=== PATIENT | male | born 1950 | race Caucasian/White ===

== ENCOUNTER 2017-08-06 02:18 | Inpatient (IN) | payer MEDICARE, OTHER ==
[2017-08-06] VITALS (14 sets, daily range): BP systolic 105–144; BP diastolic 65–95; PULSE 68–79; RESP 14–17; TEMP 97.3–97.6; O2SAT 92–97
[~2017-08-06] VITALS: Ht 182.9 cm; Wt 93.9 kg
[~2017-08-06 02:18] MED LIST: ACET325T11; ALLO100T PO; CIAL20TA PO; DOXY100T PO; EXCEDRIN PO; IRBE150T49 PO; MULTCAP13 PO; PRIL10CA PO; PROP60 PO; PSEU30LI PO; VALT1TAB26 PO; XANA0.5T; ZALE10
[2017-08-06] MEDS ORDERED: ZALE10CA PO (02:33)
[2017-08-06] MEDS ORDERED: XANA1TAB2 PO (02:33)
[2017-08-06] MEDS ORDERED: SODIUM CHLOR 0.9% 1000 ML INJ 1,000 ML IV ONE (02:34)
[2017-08-06] MEDS ORDERED: SODIUM CHLORIDE 0.9% FLUSH 10 ML FLUSH IVF PRN (02:45)
[2017-08-06 02:49] LABS: AUTOMATED NEUTROPHIL # 2.3 TH/MM3 (1.8-7.7); BASOPHIL % 0.7 % (0.0-2.0); EOSINOPHIL # 0.2 TH/MM3 (0-0.4); EOSINOPHIL % 3.6 % (0.0-4.0); HEMATOCRIT 45.1 % (39.0-51.0); LYMPHOCYTE # 1.5 TH/MM3 (1.0-4.8); MEAN CELL VOLUME 102.3 FL (80.0-100.0); NEUT % 51.7 % (16.0-70.0); PLATELET COUNT 79 TH/MM3 (150-450); RED BLOOD COUNT 4.41 MIL/MM3 (4.50-5.90); RED CELL DISTRIBUTION WIDTH 13.1 % (11.6-17.2); WHITE BLOOD COUNT 4.5 TH/MM3 (4.0-11.0)
[2017-08-06 02:59] LABS: PROTHROMBIN TIME - PATIENT 10.6 SEC (9.8-11.6)
[2017-08-06 03:04] LABS: ACETAMINOPHEN 2.5 MCG/ML (10.0-30.0); ALKALINE PHOSPHATASE 135 U/L (45-117); ALT (GPT) 37 U/L (12-78); TOTAL BILIRUBIN ADULT 0.4 MG/DL (0.2-1.0)
[2017-08-06 03:05] LABS: HEMO FLAGS AUTO DIFF; MEAN CORPUSCULAR HGB CONC 36.2 % (32.0-36.0)
[2017-08-06 03:13] LABS: ANION GAP 5 MEQ/L (5-15); AST (GOT) 55 U/L (15-37); BICARBONATE 30.8 MEQ/L (21.0-32.0); BLOOD UREA NITROGEN 13 MG/DL (7-18); CHLORIDE 104 MEQ/L (98-107); GLOMERULAR FILTRATION RATE 107 ML/MIN (>89); POTASSIUM 3.9 MEQ/L (3.5-5.1); SODIUM (NA) 140 MEQ/L (136-145)
[2017-08-06 03:14] LABS: ALCOHOL 80 MG/DL (0-5)
--- NOTE | 2017-08-06 03:35 | PD ---
HPI Chief Complaint: OD/ Ingestion Time Seen by Provider: 02:25 Travel History International Travel<30 days: No Contact w/Intl Traveler<30days: No Traveled to known affect area: No History of Present Illness HPI 66 y/o male presents with ingesting approximately 20 Xanax and 20 Ambien trying to kill himself. He is under العر[place] act. This occurred about an hour and a half prior to arrival. He states he's saddened drowsy but denies any other concurrent complaints. He presented by ambulance. He states that he's had thoughts of wanting to hurt himself but has not had any prior attempt. PFSH Past Medical History Cancer: No Cardiovascular Problems: No Diabetes: No Diminished Hearing: No Gout: Yes Hepatitis: No Hiatal Hernia: No Hypertension: Yes Medical other: Yes (GOUT) Respiratory: No Thyroid Disease: No Tetanus Vaccination: < 5 Years Past Surgical History Abdominal Surgery: Yes (GALLBLADDER) Cardiac Surgery: No Ear Surgery: No Endocrine Surgery: No Eye Surgery: No Genitourinary Surgery: No Gynecologic Surgery: No Neurologic Surgery: No Oral Surgery: No Thoracic Surgery: No Other Surgery: Yes Social History Alcohol Use: Yes Tobacco Use: No Substance Use: No Allergies-Medications (Allergen,Severity, Reaction): Coded Allergies: ampicillin (Unverified Allergy, Severe, 04/19/17) Reported Meds & Prescriptions Reported Meds & Active Scripts Active Reported Xanax (Alprazolam) 1 Mg Tab 1 Mg PO TID PRN Zaleplon 10 Mg Cap 10 Mg PO HS PRN Review of Systems Except as stated in HPI: all other systems reviewed are Neg Physical Exam Narrative GENERAL: Well-nourished, well-developed patient. SKIN: Warm and dry. HEAD: Normocephalic and atraumatic. EYES: No injection or drainage. ENT: No nasal drainage noted. NECK: Supple, trachea midline. CARDIOVASCULAR: Regular rate and rhythm RESPIRATORY: No increased effort. No accessory muscle use. GASTROINTESTINAL: Abdomen soft, non-tender, nondistended. EXTREMITIES: No edema. NEUROLOGICAL: Awake and alert. Motor and sensory grossly within normal limits. Normal speech. Data Data Last Documented VS Vital Signs Date Time Temp Pulse Resp B/P (MAP) Pulse Ox O2 Delivery O2 Flow Rate FiO2 08/06/17 05:02 68 16 107/69 (82) 94 Room Air 08/06/17 04:02 2.00 08/06/17 02:36 97.6 Orders Orders Electrocardiogram (08/06/17 ) Electrocardiogram (08/06/17 02:34) Complete Blood Count With Diff (08/06/17 02:34) Comprehensive Metabolic Panel (08/06/17 02:34) Prothrombin Time / Inr (Pt) (08/06/17 02:34) Act Partial Throm Time (Ptt) (08/06/17 02:34) Iv Access Insert/Monitor (08/06/17 02:34) Ecg Monitoring (08/06/17 02:34) Oximetry (08/06/17 02:34) Sodium Chloride 0.9% Flush (Ns Flush) (08/06/17 02:45) Sodium Chlor 0.9% 1000 Ml Inj (Ns 1000 M (08/06/17 02:34) Call Poison Control (08/06/17 02:34) Drug Screen, Random Urine (08/06/17 02:34) Alcohol (Ethanol) (08/06/17 02:34) Salicylates (Aspirin) (08/06/17 02:34) Tylenol (Acetaminophen) (08/06/17 02:34) Psych Screen (08/06/17 05:22) Labs Laboratory Tests Test 08/06/17 02:25 08/06/17 03:10 White Blood Count 4.5 TH/MM3 Red Blood Count 4.41 MIL/MM3 Hemoglobin 16.3 GM/DL Hematocrit 45.1 % Mean Corpuscular Volume 102.3 FL Mean Corpuscular Hemoglobin 37.0 PG Mean Corpuscular Hemoglobin Concent 36.2 % Red Cell Distribution Width 13.1 % Platelet Count 79 TH/MM3 Mean Platelet Volume 9.0 FL Neutrophils (%) (Auto) 51.7 % Lymphocytes (%) (Auto) 33.0 % Monocytes (%) (Auto) 11.0 % Eosinophils (%) (Auto) 3.6 % Basophils (%) (Auto) 0.7 % Neutrophils # (Auto) 2.3 TH/MM3 Lymphocytes # (Auto) 1.5 TH/MM3 Monocytes # (Auto) 0.5 TH/MM3 Eosinophils # (Auto) 0.2 TH/MM3 Basophils # (Auto) 0.0 TH/MM3 CBC Comment AUTO DIFF Differential Comment AUTO DIFF CONFIRMED Prothrombin Time 10.6 SEC Prothromb Time International Ratio 1.0 RATIO Activated Partial Thromboplast Time 25.0 SEC Blood Urea Nitrogen 13 MG/DL Creatinine 0.73 MG/DL Random Glucose 94 MG/DL Total Protein 6.2 GM/DL Albumin 3.3 GM/DL Calcium Level 8.3 MG/DL Alkaline Phosphatase 135 U/L Aspartate Amino Transf (AST/SGOT) 55 U/L Alanine Aminotransferase (ALT/SGPT) 37 U/L Total Bilirubin 0.4 MG/DL Sodium Level 140 MEQ/L Potassium Level 3.9 MEQ/L Chloride Level 104 MEQ/L Carbon Dioxide Level 30.8 MEQ/L Anion Gap 5 MEQ/L Estimat Glomerular Filtration Rate 107 ML/MIN Salicylates Level LESS THAN 1.7 MG/DL Acetaminophen Level 2.5 MCG/ML Ethyl Alcohol Level 80 MG/DL Urine Opiates Screen NEG Urine Barbiturates Screen NEG Urine Amphetamines Screen NEG Urine Benzodiazepines Screen POS Urine Cocaine Screen NEG Urine Cannabinoids Screen NEG MDM Medical Decision Making Medical Screen Exam Complete: Yes Emergency Medical Condition: Yes Medical Record Reviewed: Yes (past history confirmed) Interpretation(s) EKG shows NSR, no ST elevation or depression, and no arrhythmias. No significant T-wave inversions. CBC & BMP Diagram 08/06/17 02:25 Total Protein 6.2 L, Albumin 3.3 L, Calcium Level 8.3 L, Alkaline Phosphatase 135 H, Aspartate Amino Transf (AST/SGOT) 55 H, Alanine Aminotransferase (ALT/ SGPT) 37, Total Bilirubin 0.4 Differential Diagnosis Overdose, coingestion, depression, alcohol use Narrative Course Will check blood work and have staff discuss with poison control center and monitor labs with mild elevation in alcohol level, observed 3.5 hours here and total of 5 hours post ingestion and patient asymptomatic, patient medically cleared at 548 Diagnosis Primary Impression: Overdose Qualified Codes: T50.902A - Poisoning by unspecified drugs, medicaments and biological substances, intentional self-harm, initial encounter Syeda Bobby MD Aug 06, 2017 03:35
[2017-08-06 04:47] LABS: SCAN/DIFF AUTO DIFF CONFIRMED
[2017-08-06] MEDS ORDERED: IRBE300T11 PO (09:48)
[2017-08-06] MEDS ORDERED: OMEP20TA93 PO (09:48)
[2017-08-06] MEDS ORDERED: ALLO100T PO (09:48)
[2017-08-06] MEDS ORDERED: VALT1TAB PO (09:48)
[2017-08-06] MEDS ORDERED: CIAL2.5T PO (09:48)
[2017-08-06] MEDS ORDERED: LORazepam 2 MG TAB PO PRN (15:00)
[2017-08-06] MEDS ORDERED: ALUMINUM/MAGNESIUM/SIMETH 30 ML CUP PO PRN (15:00)
[2017-08-06] MEDS ORDERED: LORazepam 2 MG/ML VIAL IV PUSH PRN ×4 (15:00)
[2017-08-06] MEDS ORDERED: FLUMAZENIL 0.5 MG/5 ML VIAL IV PUSH PRN (15:00)
[2017-08-06] MEDS ORDERED: MAGNESIUM HYDROXIDE SUSP 30 ML CUP PO PRN (15:00)
--- NOTE | 2017-08-06 15:10 | HHI.HP ---
Provisional Diagnosis Admission Date [place] I. Major depression Certification of Person's Competence To Provide Express and Informed Consent I have personally examined Betina Alvarado , a person being served at [facility] on, Aug 06, 2017 14:59. Express and informed consent means consent voluntarily given in writing, by a competent person, after sufficient explanation and disclosure of the subject matter involved to enable the person to make a knowing and willful decision without any element of force, fraud, deceit, duress, or other form of constraint or coercion. This person is 18 years of age or older, is not now known to be incompetent to consent to treatment with a guardian advocate, and does not have a health care surrogate or proxy currently making medical treatment decisions. I have found this person to be one of the following: [x] Competent to provide express and informed consent, as defined above, for voluntary admission to this facility and is competent to provide express and informed consent for treatment. He/she has the consistent capacity to make well reasoned, willful, and knowing decisions concerning his or her medical or mental health treatment. The person fully and consistently understands the purpose of the admission for examination/placement and is fully capable of personally exercising all rights [place] Incompetent to provide express and informed consent to voluntary admission, and this is incompetent to provide express and informed consent to treatment. The person must be transferred to involuntary status and a petition for a guardian advocate filed with the Circuit Court. [] Refusing to provide express and informed consent to voluntary admission but is competent to provide express and informed consent for treatment. The person must be discharged or transferred to involuntary status. Form shall be completed within 24 hours of a person's arrival at the receiving facility and filed in the clinical record of each person: 1. Admitted on a voluntary basis 2. Permitted to provide express and informed consent to his/her own treatment 3. Allowed to transfer from involuntary to voluntary status 4. Prior to permitting a person to consent to his or her own treatment after having been previously found incompetent to consent to treatment. 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 Patient reportedly overdosed on approximately 20 Xanax and approximately 20 Ambien in a self-admitted suicide attempt. 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 He is also a recovering alcoholic and this physician is uncertain as to whether the patient has been drinking alcohol. Nurse Quin reports the patient has consumed approximately 1 pint of tequila every 2-3 days. Patient is and having marital issues as well. This physician spoke with Dr. Jessica Nelson , local OB/ [employer] doctor, who knows of the physician and is concerned the patient may be dealing with the negative criticism from others who are pro life. The patient describes multiple symptoms of major depression, including depressed mood, anhedonia, feelings of hopelessness and helplessness, suicidal ideation, anxiety, sleep and appetite disturbance, decreased energy, etc. The patient is unable to contract for safety at this time. Review of Systems Psychiatric: COMPLAINS OF: Anxiety, Mood changes, Suicidal Ideation Except as stated in HPI: all other systems reviewed are Neg Past Psych History Psychological trauma history Unknown Violence risk - others (6 mos) Minimal Violence risk - self (6 mos) High Substance Abuse History Drugs/Alcohol past 12 months Reported history of alcohol abuse recently. Previous history of alcohol abuse with recovery. Past Family Social History Coded Allergies: ampicillin (Unverified Allergy, Severe, 04/19/17) Reported Medications Valacyclovir (Valtrex) 1,000 Mg Tab, 1000 MG PO DAILY for Mgmt Viral Infection, #30 TAB 0 Refills 08/06/17 Tadalafil (Cialis) 2.5 Mg Tab, 2.5 MG PO DAILY, TAB 0 Refills Do not exceed 1 dose/day. 08/06/17 Omeprazole (Omeprazole) 20 Mg Tab, 20 MG PO BID, #30 TAB 0 Refills 08/06/17 Irbesartan (Irbesartan) 300 Mg Tab, 300 MG PO DAILY for Blood Pressure Management, #30 TAB 0 Refills 08/06/17 Allopurinol (Allopurinol) 100 Mg Tab, 150 MG PO DAILY for Gout, #30 TAB 0 Refills 08/06/17 Alprazolam (Xanax) 1 Mg Tab, 1 MG PO TID Y for ANXIETY, TAB 0 Refills 08/06/17 Zaleplon (Zaleplon) 10 Mg Cap, 10 MG PO HS Y for INSOMNIA, CAP 0 Refills 08/06/17 Discontinued Reported Medications Acetaminophen (Tylenol 325 Mg Tab) 325 Mg Tab, 500 MG .XX PRN 04/11/12 Pseudoephedrine Hcl (Pseudoephedrine Hcl) 30 Mg/5 Ml Syrp, 30 MG PO BID 04/11/12 Multiple Vitamins W/ Minerals (Multi Complete) Complete Cap, 1 PO DAILY 04/11/12 Tadalafil (Cialis) 20 Mg Tab, 20 MG PO 1-2WK 04/11/12 Alprazolam (Xanax 0.5 mg) 0.5 Mg Tab, 0.5 MG .XX HS 04/11/12 Zaleplon (Sonata 10 Mg Cap) 10 Mg Cap, 10 MG .XX PRN 04/11/12 [Excedrin] No Conflict Check, PO DAILYPRN 03/07/11 Valacyclovir Hcl (Valtrex) 1 Gm Tab, 1 GM PO DAILY 03/07/11 Propranolol ER (Inderal LA) 60 Mg Capcr, 60 MG PO DAILY 03/07/11 Omeprazole (Prilosec) 10 Mg Cap, 20 MG PO BID 03/07/11 Irbesartan (Avapro) 150 Mg Tab, 300 MG PO DAILY 03/07/11 Allopurinol (Allopurinol) 100 Mg Tab, 150 MG PO DAILY 03/07/11 Discontinued Scripts Doxycycline Hyclate 100 mg (Doxycycline Hyclate 100 mg) 100 Mg Tab, 100 MG PO BID, #14 TAB Prov:Javid Ward MD 02/01/16 Current Medications Medications (Trade) Dose Ordered Sig/Ga Route Start Time Stop Time Status Last Admin (NS Flush) 2 ml UNSCH PRN IVF 08/06/17 02:45 Family Psych History Positive for mood disorders and alcoholism. 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 Reportedly well respected by many ALLERGY AND IMMUNOLOGY SPECIALIST practitioners. . Patient's Strengths (min. 2) Intelligent. Has access to healthcare. Physical Exam GENERAL: SKIN: Warm and dry. HEAD: Normocephalic. EYES: No scleral icterus. No injection or drainage. NECK: Supple, trachea midline. No JVD or lymphadenopathy. CARDIOVASCULAR: Regular rate and rhythm without murmurs, gallops, or rubs. RESPIRATORY: Breath sounds equal bilaterally. No accessory muscle use. GASTROINTESTINAL: Abdomen soft, non-tender, nondistended. MUSCULOSKELETAL: No cyanosis, or edema. BACK: Nontender without obvious deformity. No CVA tenderness. Vital Signs Vital Signs Date Time Temp Pulse Resp B/P (MAP) Pulse Ox O2 Delivery O2 Flow Rate FiO2 08/06/17 09:31 97.3 79 16 138/95 (109) 97 08/06/17 06:23 Room Air 08/06/17 04:02 2.00 I/O 08/06/17 08/06/17 08/06/17 07:59 15:59 23:59 Intake Total 1000 ml Output Total 650 ml Balance 1000 ml -650 ml Lab Results Test 08/06/17 02:25 08/06/17 03:10 White Blood Count 4.5 TH/MM3 Red Blood Count 4.41 MIL/MM3 Hemoglobin 16.3 GM/DL Hematocrit 45.1 % Mean Corpuscular Volume 102.3 FL Mean Corpuscular Hemoglobin 37.0 PG Mean Corpuscular Hemoglobin Concent 36.2 % Red Cell Distribution Width 13.1 % Platelet Count 79 TH/MM3 Mean Platelet Volume 9.0 FL Neutrophils (%) (Auto) 51.7 % Lymphocytes (%) (Auto) 33.0 % Monocytes (%) (Auto) 11.0 % Eosinophils (%) (Auto) 3.6 % Basophils (%) (Auto) 0.7 % Neutrophils # (Auto) 2.3 TH/MM3 Lymphocytes # (Auto) 1.5 TH/MM3 Monocytes # (Auto) 0.5 TH/MM3 Eosinophils # (Auto) 0.2 TH/MM3 Basophils # (Auto) 0.0 TH/MM3 CBC Comment AUTO DIFF Differential Comment AUTO DIFF CONFIRMED Prothrombin Time 10.6 SEC Prothromb Time International Ratio 1.0 RATIO Activated Partial Thromboplast Time 25.0 SEC Blood Urea Nitrogen 13 MG/DL Creatinine 0.73 MG/DL Random Glucose 94 MG/DL Total Protein 6.2 GM/DL Albumin 3.3 GM/DL Calcium Level 8.3 MG/DL Alkaline Phosphatase 135 U/L Aspartate Amino Transf (AST/SGOT) 55 U/L Alanine Aminotransferase (ALT/SGPT) 37 U/L Total Bilirubin 0.4 MG/DL Sodium Level 140 MEQ/L Potassium Level 3.9 MEQ/L Chloride Level 104 MEQ/L Carbon Dioxide Level 30.8 MEQ/L Anion Gap 5 MEQ/L Estimat Glomerular Filtration Rate 107 ML/MIN Salicylates Level LESS THAN 1.7 MG/DL Acetaminophen Level 2.5 MCG/ML Ethyl Alcohol Level 80 MG/DL Urine Opiates Screen NEG Urine Barbiturates Screen NEG Urine Amphetamines Screen NEG Urine Benzodiazepines Screen POS Urine Cocaine Screen NEG Urine Cannabinoids Screen NEG Mental Status Examination Appearance: Disheveled Consciousness: Alert Orientation: x4 Motor Activity: Normal gait Speech: Hesitant Language: Adequate Fund of Knowledge: Adequate Attention and Concentration: Easily Distracted Memory: Unremarkable Mood: Sad, Anxious Affect: Sad, Anxious Thought Process & Associations: Intact Thought Content: Appropriate Hallucination Type: None Delusion Type: None Suicidal Ideation: Yes Suicidal Plan: Yes Suicidal Intention: Yes Homicidal Ideation: No Homicidal Plan: No Homicidal Intention: No Insight: Fair Judgment: Impulsive Assessment & Plan Problem List: (1) Severe major depression, single episode, without psychotic features ICD Codes: F32.2 - Major depressive disorder, single episode, severe without psychotic features Assessment & Plan Estimated LOS: days. 66-year-old male under a العراقي act for self-admitted overdose on Ambien and Xanax. Patient obviously depressed with suicidal intent. He is unable to contract for safety and he is being admitted for further evaluation and treatment. Because this physician is uncertain as to whether the patient will go through alcohol or drug withdrawal symptoms, he is being placed on a CIWA protocol. Furthermore, this physician contacted chief controller center Dr. Bellamy and placed a consult for Dr. Yasmin Castelan to assess and treat the patient. CBC and comprehensive metabolic panels were ordered to determine if any infectious process or metabolic processes causing or contributing to the patient's depression. Due to the patient's age, we're also obtaining a lipid panel and an EKG to determine if any likely or present cardiovascular disease may be a problem in treating the patient. Psychotropic medicines sometimes can alter cardiac conduction and therefore we are monitoring the patient and evaluating him for any risks this might involve. This physician also ordered thyroid stimulating hormone, vitamin B-12 and vitamin D levels, to determine if any deficiencies in these areas are causing or contributing to his mood disorder. In addition to the above practitioner, this physician has also discussed the patient's case with nurse Tsai. Case management is also being involved to assist with further information gathering and disposition planning. This physician has an obligation to contact the professional resource network and obtain their input for further medical care. Patient was informed of this likelihood. Tej Pruitt MD Aug 06, 2017 15:10
--- NOTE | 2017-08-06 15:50 | PD.CONS ---
HPI Service [facility] Hospitalists Consult Requested By Dr. Pruitt Reason for Consult Evaluate for drug/alcohol withdrawals and any other medical issues Primary Care Physician Sea Lund MD Diagnoses: History of Present Illness This is a 66-year-old male past medical history of anxiety disorder, hypertension, gout, and GERD who presented with suicide attempt with overdosing on Xanax. Initially when I asked patient why he was in the hospital he gave me a blank stare. Then I asked him what happened and he stated that someone called 911 and he ended up here. When I asked patient to try to commit suicide he stated yes and became teary. He was then able to give me his alias name and date, but could not tell me location. When I asked him if he was in the hospital he stated yes. It was difficult to get a complete history from the patient but per EMR patient had a suicide attempt with Xanax. Patient stated that he drinks 1.75 L of vodka per week. He could not quantify how much every day. Patient also stated that if he does not take his Xanax or drink he does go into withdrawal with becoming tremulous. Denied any hx of DTs. At the moment patient feels like he is withdrawing but is not tremulous. He denied any abdominal pain, nausea/vomiting, chest pain, palpitation, shortness of breathing, lightheadedness or dizziness. Patient does admit feeling depressed. During the interview his nurse is at the bedside. All other review system reviewed and negative. Past Family Social History Allergies: Coded Allergies: ampicillin (Unverified Allergy, Severe, 04/19/17) Past Medical History Positive for mood disorders and alcoholism. Herpes simplex Hypertension Gout GERD Past Surgical History Right anterior cruciate ligament repair Cholecystectomy. Reported Medications Valtrex (Valacyclovir HCl) 1,000 Mg Tab 1,000 Mg PO DAILY Cialis (Tadalafil) 2.5 Mg Tab 2.5 Mg PO DAILY Do not exceed 1 dose/day. Omeprazole 20 Mg Tab 20 Mg PO BID Irbesartan 300 Mg Tab 300 Mg PO DAILY Allopurinol 100 Mg Tab 150 Mg PO DAILY Xanax (Alprazolam) 1 Mg Tab 1 Mg PO TID PRN Zaleplon 10 Mg Cap 10 Mg PO HS PRN Active Ordered Medications Current Medications Sodium Chloride (NS Flush) 2 ml UNSCH PRN IVF FLUSH AFTER USING IV ACCESS; Start 12/2/17 at 02:45 Sodium Chloride 1,000 ml @ 1,000 mls/hr Q1H ONCE IV Last administered on t 02:46; Start 08/06/17 at 02:34; Stop 08/06/17 at 03:33; Status DC Acetaminophen (Tylenol) 650 mg Q4H PRN PO Pain 1-5 or Temp >101F; Start at 15:00 Magnesium Hydroxide (Milk Of Magnesia Liq) 30 ml DAILY PRN PO CONSTIPATION; Start 08/06/17 at 15:00 Al Hydrox/Mg Hydrox/Simethicone (Mag-Al Plus Susp Liq) 30 ml Q6H PRN PO DYSPEPSIA; Start 08/06/17 at 15:00 Trazodone HCl (Desyrel) 50 mg HS PRN PO INSOMNIA; Start 08/06/17 at 15:00 Hydroxyzine HCl (Atarax) 50 mg Q6H PRN PO ANXIETY; Start 08/06/17 at 15:00 Flumazenil (Romazicon Inj) 0.2 mg Q1M PRN IV PUSH SEE LABEL COMMENTS; Start at 15:00 Lorazepam (Ativan) 1 mg Q4H PRN PO CIWA 8 - 10; Start 08/06/17 at 15:00 Lorazepam (Ativan Inj) 1 mg Q4H PRN IV PUSH CIWA 8 - 10; Start 08/06/17 at 15: 00 Lorazepam (Ativan) 2 mg Q2H PRN PO CIWA 11-14; Start 08/06/17 at 15:00 Lorazepam (Ativan Inj) 2 mg Q2H PRN IV PUSH CIWA 11-14; Start 08/06/17 at 15:00 Lorazepam (Ativan Inj) 2 mg Q1H PRN IV PUSH CIWA 15-20; Start 08/06/17 at 15:00 Lorazepam (Ativan Inj) 2 mg Q15M PRN IV PUSH CIWA > 20; Start 08/06/17 at 15:00 Allopurinol (Zyloprim) 150 mg DAILY PO ; Start 08/07/17 at 09:00; Status UNV Valacyclovir HCl (Valtrex) 1,000 mg DAILY PO ; Start 08/07/17 at 09:00; Status UNV Non-Formulary Medication 20 mg BID PO ; Start 08/06/17 at 21:00; Status UNV Family History Patient did not give me any family history. Reviewed. 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 . Physical Exam Vital Signs Vital Signs Date Time Temp Pulse Resp B/P (MAP) Pulse Ox O2 Delivery O2 Flow Rate FiO2 08/06/17 15:33 08/06/17 09:31 97.3 79 16 138/95 (109) 97 08/06/17 06:23 78 17 117/77 (90) 95 Room Air 08/06/17 05:42 76 16 119/72 (88) 95 Room Air 08/06/17 05:02 68 16 107/69 (82) 94 Room Air 08/06/17 04:41 97 Room Air 08/06/17 04:30 72 16 111/65 (80) 95 Room Air 08/06/17 04:26 94 Room Air 08/06/17 04:02 68 16 105/70 (82) 97 Nasal Cannula 2.00 08/06/17 03:31 73 16 110/68 (82) 96 Nasal Cannula 2.00 08/06/17 03:20 74 16 108/67 (81) 96 Nasal Cannula 2.00 08/06/17 02:47 93 Nasal Cannula 2.00 08/06/17 02:36 97.6 74 14 108/65 (79) 95 Nasal Cannula 2.00 08/06/17 02:24 78 14 108/65 (79) 92 Physical Exam GENERAL: This is a well-nourished, well-developed patient, in no apparent distress. SKIN: No rashes, ecchymoses or lesions. Cool and dry. HEAD: Atraumatic. Normocephalic. No temporal or scalp tenderness. EYES: Pupils equal round and reactive. Extraocular motions intact. No scleral icterus. No injection or drainage. ENT: Nose without bleeding, purulent drainage or septal hematoma. Throat without erythema, tonsillar hypertrophy or exudate. Uvula midline. Airway patent. NECK: Trachea midline. No JVD or lymphadenopathy. Supple, nontender, no meningeal signs. CARDIOVASCULAR: Regular rate and rhythm without murmurs, gallops, or rubs. RESPIRATORY: Clear to auscultation. Breath sounds equal bilaterally. No wheezes , rales, or rhonchi. GASTROINTESTINAL: Abdomen soft, non-tender, nondistended. No hepato-splenomegaly , or palpable masses. No guarding. MUSCULOSKELETAL: Extremities without clubbing, cyanosis, or edema. No joint tenderness, effusion, or edema noted. No calf tenderness. Negative Homans sign bilaterally. NEUROLOGICAL: Awake and alert. Cranial nerves II through XII intact. Motor and sensory grossly within normal limits. Five out of 5 muscle strength in all muscle groups. Speech is slow but otherwise normal. PSYCH: Flat affect Laboratory Laboratory Tests Test 08/06/17 02:25 08/06/17 03:10 White Blood Count 4.5 Red Blood Count 4.41 Hemoglobin 16.3 Hematocrit 45.1 Mean Corpuscular Volume 102.3 Mean Corpuscular Hemoglobin 37.0 Mean Corpuscular Hemoglobin Concent 36.2 Red Cell Distribution Width 13.1 Platelet Count 79 Mean Platelet Volume 9.0 Neutrophils (%) (Auto) 51.7 Lymphocytes (%) (Auto) 33.0 Monocytes (%) (Auto) 11.0 Eosinophils (%) (Auto) 3.6 Basophils (%) (Auto) 0.7 Neutrophils # (Auto) 2.3 Lymphocytes # (Auto) 1.5 Monocytes # (Auto) 0.5 Eosinophils # (Auto) 0.2 Basophils # (Auto) 0.0 CBC Comment AUTO DIFF Differential Comment AUTO DIFF CONFIRMED Prothrombin Time 10.6 Prothromb Time International Ratio 1.0 Activated Partial Thromboplast Time 25.0 Blood Urea Nitrogen 13 Creatinine 0.73 Random Glucose 94 Total Protein 6.2 Albumin 3.3 Calcium Level 8.3 Alkaline Phosphatase 135 Aspartate Amino Transf (AST/SGOT) 55 Alanine Aminotransferase (ALT/SGPT) 37 Total Bilirubin 0.4 Sodium Level 140 Potassium Level 3.9 Chloride Level 104 Carbon Dioxide Level 30.8 Anion Gap 5 Estimat Glomerular Filtration Rate 107 Salicylates Level LESS THAN 1.7 Acetaminophen Level 2.5 Ethyl Alcohol Level 80 Urine Opiates Screen NEG Urine Barbiturates Screen NEG Urine Amphetamines Screen NEG Urine Benzodiazepines Screen POS Urine Cocaine Screen NEG Urine Cannabinoids Screen NEG Result Diagram: 08/06/1722408/06/17224 Assessment and Plan Assessment and Plan 66-year-old male who was العراقي act secondary to suicide attempt from overdose Overdose with Xanax/suicide attempt/العراقي act -Patient being managed by inpatient psychiatrist. Discussed with Dr. Pruitt over the phone. -Reviewed labs that were obtained. Vitamin levels/TSH/lipid profile ordered by primary team. I will follow up with results. -Continue with management per psychiatrist. Alcohol abuse -Patient does admit having withdrawal symptoms if he does not drink alcohol or receive Xanax. -He was put on the CIWA protocol by primary team. -Continue with CIWA protocol. Will add thiamine, multivitamin, folic acid. -Will continue to monitor closely and adjust medication as needed. Thrombocytopenia -Most likely secondary to bone suppression from alcoholism. -Patient does not have any active bleeding. -Continue to monitor platelet to assure stabilization. Hypertension -At the moment patient is normotensive. This may be secondary to Xanax. -Will hold antihypertensive medication for now, but I will restart medication once patient becomes hypertensive. GERD/gout -Restart home medication. Discussed Condition With Patient, Dr. Pruitt, and patient's nurse Yasmin Castelan MD Aug 06, 2017 15:50
[2017-08-06] MEDS ORDERED: PILL SPLITTER OTHER PRN (16:15)
[2017-08-06] MEDS: FOLIC ACID 1 MG TAB PO SCH (17:27)
[2017-08-06] MEDS: THIAMINE HCL 100 MG TAB PO SCH (17:27)
[2017-08-06] MEDS: MULTIVITAMIN TAB PO SCH (17:27)
[2017-08-06] MEDS: hydrOXYzine HCL 50 MG TAB PO PRN (17:31)
[2017-08-06] MEDS ORDERED: NON-FORMULARY DRUG (Omeprazole 20 MG) PO SCH (21:00)
[2017-08-06] MEDS: PANTOPRAZOLE SOD 20 MG DELAYED RELEASE TAB PO SCH (21:10)
[2017-08-07 06:00] VITALS: BP 131/80; PULSE 67; RESP 16; TEMP 97.5; O2SAT 95
[2017-08-07] MEDS ORDERED: IRBESARTAN 300 MG PO SCH (09:00)
[2017-08-07] MEDS: valACYclovir HCL 500 MG TAB PO SCH (10:09)
[2017-08-07] MEDS: THIAMINE HCL 100 MG TAB PO SCH (10:09)
[2017-08-07] MEDS: LOSARTAN 50 MG TAB PO SCH (10:09)
[2017-08-07] MEDS: FOLIC ACID 1 MG TAB PO SCH (10:09)
[2017-08-07] MEDS: PANTOPRAZOLE SOD 20 MG DELAYED RELEASE TAB PO SCH ×2 (10:10→20:43)
[2017-08-07] MEDS: MULTIVITAMIN TAB PO SCH (10:10)
[2017-08-07] MEDS: ALLOPURINOL 100 MG TAB PO SCH (10:10)
[2017-08-07 11:30] LABS: AUTOMATED NEUTROPHIL # 2.3 TH/MM3 (1.8-7.7); BASOPHIL % 0.5 % (0.0-2.0); EOSINOPHIL # 0.2 TH/MM3 (0-0.4); EOSINOPHIL % 4.4 % (0.0-4.0); HEMATOCRIT 47.2 % (39.0-51.0); LYMPH % 23.8 % (9.0-44.0); LYMPHOCYTE # 0.9 TH/MM3 (1.0-4.8); MEAN CELL VOLUME 102.3 FL (80.0-100.0); MEAN CORPUSCULAR HEMOGLOBIN 36.1 PG (27.0-34.0); MEAN CORPUSCULAR HGB CONC 35.3 % (32.0-36.0); MONO % 10.9 % (0.0-8.0); NEUT % 60.4 % (16.0-70.0); PLATELET COUNT 61 TH/MM3 (150-450); RED BLOOD COUNT 4.61 MIL/MM3 (4.50-5.90); RED CELL DISTRIBUTION WIDTH 13.1 % (11.6-17.2); WHITE BLOOD COUNT 3.8 TH/MM3 (4.0-11.0)
[2017-08-07 11:31] LABS: HEMO FLAGS AUTO DIFF
[2017-08-07 11:53] LABS: ALT (GPT) 35 U/L (12-78); ANION GAP 4 MEQ/L (5-15); AST (GOT) 32 U/L (15-37); BICARBONATE 30.6 MEQ/L (21.0-32.0); BLOOD UREA NITROGEN 11 MG/DL (7-18); CHLORIDE 106 MEQ/L (98-107); GLOMERULAR FILTRATION RATE 101 ML/MIN (>89); POTASSIUM 3.9 MEQ/L (3.5-5.1); SODIUM (NA) 141 MEQ/L (136-145)
[2017-08-07 12:11] LABS: PLATELET ESTIMATE SMEAR LOW (NORMAL); PLATELET MORPHOLOGY NORMAL (NORMAL); SCAN/DIFF AUTO DIFF CONFIRMED
[2017-08-07 12:19] LABS: ALKALINE PHOSPHATASE 114 U/L (45-117); HDL CHOLESTEROL 58.5 MG/DL (40.0-60.0); LDL CHOLESTEROL 80 MG/DL (0-99); TOTAL BILIRUBIN ADULT 1.2 MG/DL (0.2-1.0)
--- NOTE | 2017-08-07 13:05 | HHI.PR ---
Subjective Remarks Follow-up for overdose and medical management Patient denies any chest pain, palpitation, soreness of breathing, lightheadedness dizziness. Denied any tremors, abdominal pain, nausea or vomiting. He asking about a packet that was given to him from the inpatient psychiatry guillaume which includes smoking cessation, living will, and behavioral health documents. Otherwise he has no other complaints. Objective Vitals Vital Signs Date Time Temp Pulse Resp B/P (MAP) Pulse Ox O2 Delivery O2 Flow Rate FiO2 08/07/17 06:00 97.5 67 16 131/80 (97) 95 08/06/17 15:45 97.4 71 16 144/84 (104) 94 08/06/17 15:33 I/O 08/06/17 08/06/17 08/06/17 08/07/17 08/07/17 08/07/17 06:59 14:59 22:59 06:59 14:59 22:59 Intake Total 1000 ml 600 ml 240 ml 0 ml Output Total 650 ml Balance 1000 ml -650 ml 600 ml 240 ml 0 ml Intake Oral 600 ml 240 ml 0 ml IV Total 1000 ml Output Urine Total 650 ml # Voids 1 2 # Bowel Movements 1 Result Diagram: 08/07/17 1116 08/07/17 1116 Objective Remarks GENERAL: in NAD CARDIOVASCULAR: Regular rate and rhythm without murmurs, gallops, or rubs. RESPIRATORY: Breath sounds equal bilaterally. No accessory muscle use. GASTROINTESTINAL: Abdomen soft, non-tender, nondistended. MUSCULOSKELETAL: No cyanosis, or edema. BACK: Nontender without obvious deformity. No CVA tenderness. NEURO: Patient was walking in the room and hallway when I was present. He selectively answers certain questions. Psych: Flat affect Medications and IVs Current Medications Sodium Chloride (NS Flush) 2 ml UNSCH PRN IVF FLUSH AFTER USING IV ACCESS; Start 08/06/17 at 02:45 Sodium Chloride 1,000 ml @ 1,000 mls/hr Q1H ONCE IV Last administered on t 02:46; Start 08/06/17 at 02:34; Stop 08/06/17 at 03:33; Status DC Acetaminophen (Tylenol) 650 mg Q4H PRN PO Pain 1-5 or Temp >101F; Start at 15:00 Magnesium Hydroxide (Milk Of Magnesia Liq) 30 ml DAILY PRN PO CONSTIPATION; Start 08/06/17 at 15:00 Al Hydrox/Mg Hydrox/Simethicone (Mag-Al Plus Susp Liq) 30 ml Q6H PRN PO DYSPEPSIA; Start 08/06/17 at 15:00 Trazodone HCl (Desyrel) 50 mg HS PRN PO INSOMNIA; Start 08/06/17 at 15:00 Hydroxyzine HCl (Atarax) 50 mg Q6H PRN PO ANXIETY Last administered on 17:31; Start 08/06/17 at 15:00 Flumazenil (Romazicon Inj) 0.2 mg Q1M PRN IV PUSH SEE LABEL COMMENTS; Start at 15:00 Lorazepam (Ativan) 1 mg Q4H PRN PO CIWA 8 - 10; Start 08/06/17 at 15:00 Lorazepam (Ativan Inj) 1 mg Q4H PRN IV PUSH CIWA 8 - 10; Start 08/06/17 at 15: 00 Lorazepam (Ativan) 2 mg Q2H PRN PO CIWA 11-14; Start 08/06/17 at 15:00 Lorazepam (Ativan Inj) 2 mg Q2H PRN IV PUSH CIWA 11-14; Start 08/06/17 at 15:00 Lorazepam (Ativan Inj) 2 mg Q1H PRN IV PUSH CIWA 15-20; Start 08/06/17 at 15:00 Lorazepam (Ativan Inj) 2 mg Q15M PRN IV PUSH CIWA > 20; Start 08/06/17 at 15:00 Allopurinol (Zyloprim) 150 mg DAILY PO Last administered on 08/07/17 10:10; Start 08/07/17 at 09:00 Valacyclovir HCl (Valtrex) 1,000 mg DAILY PO Last administered on 08/07/17 10: 09; Start 08/07/17 at 09:00 Non-Formulary Medication 20 mg BID PO ; Start 08/06/17 at 21:00; Status UNV Miscellaneous (Pill Splitter) 1 ea UNSCH PRN OTHER SEE LABEL COMMENTS; Start 08/06/17 at 16:15 Pantoprazole Sodium (Protonix) 20 mg BID PO Last administered on 08/07/17 10: 10; Start 08/06/17 at 21:00 Thiamine HCl (Vitamin B1) 100 mg DAILY PO Last administered on 08/07/17 10:09 ; Start 08/06/17 at 16:30 Folic Acid (Folate) 1 mg DAILY PO Last administered on 08/07/17 10:09; Start 08/06/17 at 16:30 Multivitamins (Theragran) 1 tab DAILY PO Last administered on 08/07/17 10:10; Start 08/06/17 at 16:30 Non-Formulary Medication 300 mg DAILY PO ; Start 08/07/17 at 09:00; Status UNV Losartan Potassium (Cozaar) 100 mg DAILY PO Last administered on 08/07/17 10: 09; Start 08/07/17 at 09:00 A/P Assessment and Plan 66-year-old male who was العراقي act secondary to suicide attempt from overdose Overdose with Xanax/suicide attempt/major depressive disorder/العراقي act -Patient being managed by inpatient psychiatrist. -Labs reviewed. Alcohol abuse -Patient does admit having withdrawal symptoms if he does not drink alcohol or receive Xanax. -Continue with CIWA protocol. on thiamine, multivitamin, folic acid. -Will continue to monitor closely and adjust medication as needed. Thrombocytopenia -Most likely secondary to bone suppression from alcoholism. -Patient does not have any active bleeding. -Continue to monitor platelet to assure stabilization. Hypertension -Home medication resumed. GERD/gout -continue with home medication Discussed with patient's nurse to go over documents that was given to the patient. Yasmin Castelan MD Aug 07, 2017 13:05
[2017-08-07 17:19] VITALS: BP 128/70; PULSE 73; RESP 17; TEMP 97.3; O2SAT 97
--- NOTE | 2017-08-07 19:16 | HHI.PYPN ---
Subjective Remarks Pt is [address] [facility] under a BA secondary to overdose on Xanax and Ambien (pt reportedly took 20 tabs of xanax and 20 tabs of ambien). Pt reports that this was indeed a suicide attempt and states that he has been feeling severely depressed for at least 7 months. 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 (he reports that works approximately 1 week a month and depression is easier to cope with when working). Pt states that 25 years ago he attempted to shoot self and was hospitalized for 2 weeks during a period of deep depression triggered by separation from his . He reports that he recovered from that episode of depression and depression remained at bay until he retired. He c/o of anhedonia, depressed mood, anxiety, poor attention, insomnia and feelings of self depreciation. He states that he has been trying to fill his days with activities but it is not working. He states that he has also found himself "sneaking" shots of liquor these past few weeks which is not good because "alcohol has got out of hand for me a few years ago." He states that his intention was to but now he "just wants to get better". Pt states that he thinks he needs an antidepressant. He denies previous antidepressant or psychiatric medications trials. He denies history of jenny or psychosis. Pt states that he and have decided to attend marital counseling and he is going to start individual therapy. Mental Status Examination Appearance: Disheveled Consciousness: Alert Orientation: x4 Motor Activity: Normal gait Speech: Unremarkable Language: Adequate Fund of Knowledge: Adequate Attention and Concentration: Adequate Memory: Unremarkable Mood: Sad, Anxious Affect: Sad, Anxious, Other (tearful) Thought Process & Associations: Intact Thought Content: Appropriate Hallucination Type: None Delusion Type: None Suicidal Ideation: Yes (denies intent) Suicidal Plan: No Suicidal Intention: No Homicidal Ideation: No Homicidal Plan: No Homicidal Intention: No Insight: Fair Judgment: Impulsive Results Labs Test 08/07/17 11:16 White Blood Count 3.8 TH/MM3 Red Blood Count 4.61 MIL/MM3 Hemoglobin 16.7 GM/DL Hematocrit 47.2 % Mean Corpuscular Volume 102.3 FL Mean Corpuscular Hemoglobin 36.1 PG Mean Corpuscular Hemoglobin Concent 35.3 % Red Cell Distribution Width 13.1 % Platelet Count 61 TH/MM3 Mean Platelet Volume 8.3 FL Neutrophils (%) (Auto) 60.4 % Lymphocytes (%) (Auto) 23.8 % Monocytes (%) (Auto) 10.9 % Eosinophils (%) (Auto) 4.4 % Basophils (%) (Auto) 0.5 % Neutrophils # (Auto) 2.3 TH/MM3 Lymphocytes # (Auto) 0.9 TH/MM3 Monocytes # (Auto) 0.4 TH/MM3 Eosinophils # (Auto) 0.2 TH/MM3 Basophils # (Auto) 0.0 TH/MM3 CBC Comment AUTO DIFF Differential Comment AUTO DIFF CONFIRMED Platelet Estimate LOW Platelet Morphology Comment NORMAL Blood Urea Nitrogen 11 MG/DL Creatinine 0.77 MG/DL Random Glucose 88 MG/DL Total Protein 6.5 GM/DL Albumin 3.4 GM/DL Calcium Level 8.8 MG/DL Alkaline Phosphatase 114 U/L Aspartate Amino Transf (AST/SGOT) 32 U/L Alanine Aminotransferase (ALT/SGPT) 35 U/L Total Bilirubin 1.2 MG/DL Sodium Level 141 MEQ/L Potassium Level 3.9 MEQ/L Chloride Level 106 MEQ/L Carbon Dioxide Level 30.6 MEQ/L Anion Gap 4 MEQ/L Estimat Glomerular Filtration Rate 101 ML/MIN Triglycerides Level 257 MG/DL Cholesterol Level 190 MG/DL LDL Cholesterol 80 MG/DL HDL Cholesterol 58.5 MG/DL Cholesterol/HDL Ratio 3.24 RATIO Vitamin B12 Level 704 PG/ML 25-Hydroxy Vitamin D Total 34.4 ng/ML Thyroid Stimulating Hormone 3rd Gen 1.560 uIU/ML Vitals/IOs Vital Signs Date Time Temp Pulse Resp B/P (MAP) Pulse Ox O2 Delivery O2 Flow Rate FiO2 08/07/17 17:19 97.3 73 17 128/70 (89) 97 08/06/17 06:23 Room Air 08/06/17 04:02 2.00 Intake and Output 08/07/17 08/07/17 08/08/17 08:00 16:00 00:00 Intake Total 240 ml 0 ml 240 ml Balance 240 ml 0 ml 240 ml Assessment & Plan Problem List: (1) Severe major depression, single episode, without psychotic features ICD Codes: F32.2 - Major depressive disorder, single episode, severe without psychotic features Assessment & Plan Discussed medication options with pt and he consents to trial of lexapro. risks vs benefits, indication for use and potential side effects discussed. Continue hospitalization for safety. Estimated LOS: days Justification for Cont. Inpt. impairments in safety Aida Tang MD Aug 07, 2017 19:16
[2017-08-07] MEDS: ESCITALOPRAM OXALATE 10 MG TAB PO SCH (20:43)
[2017-08-07] MEDS: hydrOXYzine HCL 50 MG TAB PO PRN (20:46)
--- NOTE | 2017-08-07 22:09 | EKG ---
Date Performed: 08/07/2017 Time Performed: 09:12:24 PTAGE: 66 years EKG: Sinus rhythm POSSIBLE INFERIOR MYOCARDIAL INFARCTION , PROBABLY OLD WITH POSTERIOR EXTENSION BORDERLINE ECG PREVIOUS TRACING : 08/06/2017 02.33 Compared to prior tracing no significant change DOCTOR: Jose Rafael Headley Interpretating Date/Time 08/07/2017 22:08:07
--- NOTE | 2017-08-07 23:07 | EKG ---
Date Performed: 08/06/2017 Time Performed: 02:33:21 PTAGE: 66 years EKG: Sinus rhythm LOW QRS VOLTAGE IN PRECORDIAL LEADS BORDERLINE ECG NO PREVIOUS TRACING DOCTOR: Jose Rafael Headley Interpretating Date/Time 08/07/2017 23:06:41
[2017-08-08] MEDS: LORazepam 1 MG TAB PO PRN (02:17)
[2017-08-08 06:20] VITALS: BP 122/65; PULSE 67; RESP 16; TEMP 98; O2SAT 97
[2017-08-08 07:22] LABS: HEMATOCRIT 45.7 % (39.0-51.0); MEAN CELL VOLUME 103.8 FL (80.0-100.0); MEAN CORPUSCULAR HEMOGLOBIN 36.4 PG (27.0-34.0); MEAN CORPUSCULAR HGB CONC 35.1 % (32.0-36.0); PLATELET COUNT 62 TH/MM3 (150-450); RED CELL DISTRIBUTION WIDTH 13.3 % (11.6-17.2)
[2017-08-08 07:23] LABS: REVIEW FLAG FINAL
[2017-08-08] MEDS: PANTOPRAZOLE SOD 20 MG DELAYED RELEASE TAB PO SCH ×2 (08:27→22:37)
[2017-08-08] MEDS: THIAMINE HCL 100 MG TAB PO SCH (08:28)
[2017-08-08] MEDS: FOLIC ACID 1 MG TAB PO SCH (08:29)
[2017-08-08] MEDS: valACYclovir HCL 500 MG TAB PO SCH (08:29)
[2017-08-08] MEDS: MULTIVITAMIN TAB PO SCH (08:29)
[2017-08-08] MEDS: LOSARTAN 50 MG TAB PO SCH (08:30)
[2017-08-08] MEDS: ALLOPURINOL 100 MG TAB PO SCH (08:30)
[2017-08-08 09:37] LABS: HEMOGLOBIN A1b 0.7 %; HEMOGLOBIN F 0.9 %; HEMOGLOBIN LA1C 2.1 %; HEMOGLOBIN P3 3.8 %
--- NOTE | 2017-08-08 09:57 | HHI.PR ---
Subjective Remarks Follow-up overdose and suicide attempt Patient stated that he feels well today. He is very anxious to go home. He has no complaints. He now says that he does not drink much. Denied nausea/vomiting, abdominal pain. He has no tremors. Objective Vitals Vital Signs Date Time Temp Pulse Resp B/P (MAP) Pulse Ox O2 Delivery O2 Flow Rate FiO2 08/08/17 06:20 98.0 67 16 122/65 (84) 97 08/07/17 17:19 97.3 73 17 128/70 (89) 97 I/O 08/07/17 08/07/17 08/07/17 08/08/17 08/08/17 08/08/17 07:00 15:00 23:00 07:00 15:00 23:00 Intake Total 240 ml 0 ml 240 ml 240 ml 600 ml Balance 240 ml 0 ml 240 ml 240 ml 600 ml Intake Oral 240 ml 0 ml 240 ml 240 ml 600 ml # Voids 2 2 Result Diagram: 08/08/17 0555 08/07/17 1116 Objective Remarks GENERAL: in NAD CARDIOVASCULAR: Regular rate and rhythm without murmurs, gallops, or rubs. RESPIRATORY: Breath sounds equal bilaterally. No accessory muscle use. GASTROINTESTINAL: Abdomen soft, non-tender, nondistended. MUSCULOSKELETAL: No cyanosis, or edema. BACK: Nontender without obvious deformity. No CVA tenderness. Psych: Patient appear more animated and speech less slow today. Medications and IVs Current Medications Sodium Chloride (NS Flush) 2 ml UNSCH PRN IVF FLUSH AFTER USING IV ACCESS; Start 08/06/17 at 02:45 Sodium Chloride 1,000 ml @ 1,000 mls/hr Q1H ONCE IV Last administered on t 02:46; Start 08/06/17 at 02:34; Stop 08/06/17 at 03:33; Status DC Acetaminophen (Tylenol) 650 mg Q4H PRN PO Pain 1-5 or Temp >101F; Start at 15:00 Magnesium Hydroxide (Milk Of Magnesia Liq) 30 ml DAILY PRN PO CONSTIPATION; Start 08/06/17 at 15:00 Al Hydrox/Mg Hydrox/Simethicone (Mag-Al Plus Susp Liq) 30 ml Q6H PRN PO DYSPEPSIA; Start 08/06/17 at 15:00 Trazodone HCl (Desyrel) 50 mg HS PRN PO INSOMNIA; Start 08/06/17 at 15:00 Hydroxyzine HCl (Atarax) 50 mg Q6H PRN PO ANXIETY Last administered on 20:46; Start 08/06/17 at 15:00 Flumazenil (Romazicon Inj) 0.2 mg Q1M PRN IV PUSH SEE LABEL COMMENTS; Start at 15:00 Lorazepam (Ativan) 1 mg Q4H PRN PO CIWA 8 - 10 Last administered on 08/08/17 02:17; Start 08/06/17 at 15:00 Lorazepam (Ativan Inj) 1 mg Q4H PRN IV PUSH CIWA 8 - 10; Start 08/06/17 at 15: 00 Lorazepam (Ativan) 2 mg Q2H PRN PO CIWA 11-14; Start 08/06/17 at 15:00 Lorazepam (Ativan Inj) 2 mg Q2H PRN IV PUSH CIWA 11-14; Start 08/06/17 at 15:00 Lorazepam (Ativan Inj) 2 mg Q1H PRN IV PUSH CIWA 15-20; Start 08/06/17 at 15:00 Lorazepam (Ativan Inj) 2 mg Q15M PRN IV PUSH CIWA > 20; Start 08/06/17 at 15:00 Allopurinol (Zyloprim) 150 mg DAILY PO Last administered on 08/08/17 08:30; Start 08/07/17 at 09:00 Valacyclovir HCl (Valtrex) 1,000 mg DAILY PO Last administered on 08/08/17 08: 29; Start 08/07/17 at 09:00 Non-Formulary Medication 20 mg BID PO ; Start 08/06/17 at 21:00; Status UNV Miscellaneous (Pill Splitter) 1 ea UNSCH PRN OTHER SEE LABEL COMMENTS; Start 08/06/17 at 16:15 Pantoprazole Sodium (Protonix) 20 mg BID PO Last administered on 08/08/17 08: 27; Start 08/06/17 at 21:00 Thiamine HCl (Vitamin B1) 100 mg DAILY PO Last administered on 08/08/17 08:28 ; Start 08/06/17 at 16:30 Folic Acid (Folate) 1 mg DAILY PO Last administered on 08/08/17 08:29; Start 08/06/17 at 16:30 Multivitamins (Theragran) 1 tab DAILY PO Last administered on 08/08/17 08:29; Start 08/06/17 at 16:30 Non-Formulary Medication 300 mg DAILY PO ; Start 08/07/17 at 09:00; Status UNV Losartan Potassium (Cozaar) 100 mg DAILY PO Last administered on 08/08/17 08: 30; Start 08/07/17 at 09:00 Escitalopram Oxalate (Lexapro) 10 mg HS PO Last administered on 08/07/17 20:43 ; Start 08/07/17 at 21:00 A/P Assessment and Plan 66-year-old male who was العراقي act secondary to suicide attempt from overdose Overdose with Xanax/suicide attempt/major depressive disorder/العراقي act -Patient being managed by inpatient psychiatrist. -Labs reviewed. Alcohol abuse -no signs of withdrawals. -Patient does admit having withdrawal symptoms if he does not drink alcohol or receive Xanax. -Continue with CIWA protocol. on thiamine, multivitamin, folic acid. -Will continue to monitor closely and adjust medication as needed. Thrombocytopenia -Most likely secondary to bone suppression from alcoholism. -Patient does not have any active bleeding. -Continue to monitor platelet to assure stabilization. Hypertension -Home medication resumed. GERD/gout -continue with home medication Discharge Planning Patient is medically clear from a medical standpoint for discharge. Yasmin Castelan MD Aug 08, 2017 09:57
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
--- NOTE | 2017-08-08 14:46 | PD.PSY.CON ---
Provisional Diagnosis Admission Date Aug 06, 2017 at 13:17 [place] I. Major depression [place] II. Deferred [place] III. Hypertension, goat History of Present Illness Service Psychiatry Consult Requested By Dr. Cartwright Reason for Consult Dr. 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 Patient reportedly overdosed on approximately 20 Xanax and approximately 20 Ambien in a self-admitted suicide attempt. 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 He is also a recovering alcoholic and this physician is uncertain as to whether the patient has been drinking alcohol. Nurse Quin reports the patient has consumed approximately 1 pint of tequila every 2-3 days. Patient is and having marital issues as well. This physician spoke with Dr. Jessica Nelson , local OB/ MORTGAGE LOAN COUNSELOR doctor, who knows of the physician and is concerned the patient may be dealing with the negative criticism from others who are pro life. The patient describes multiple symptoms of major depression, including depressed mood, anhedonia, feelings of hopelessness and helplessness, suicidal ideation, anxiety, sleep and appetite disturbance, decreased energy, etc. The patient is unable to contract for safety at this time. 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 Patient was consulted to me for second opinion. Patient says that he regrets his mistake of overdosing. 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 Patient reports that [facility] for him has been like "a train hitting a wall". At this moment the patient denies suicidal ideation, he says that he will do everything is needed in order to do things right and be discharged, including taking medications and going to rehabilitation. Review of Systems Constitutional: DENIES: Diaphoretic episodes, Fatigue, Fever, Weight gain, Weight loss, Chills, Dizziness, Change in appetite, Night Sweats Endocrine: DENIES: Heat/cold intolerance, Polydipsia, Polyuria, Polyphagia Eyes: DENIES: Blurred vision, Diplopia, Eye inflammation, Eye pain, Vision loss , Photosensitivity, Double Vision Ears, nose, mouth, throat: DENIES: Tinnitus, Hearing loss, Vertigo, Nasal discharge, Oral lesions, Throat pain, Hoarseness, Ear Pain, Running Nose, Epistaxis, Sinus Pain, Toothache, Odynophagia Respiratory: DENIES: Apneas, Cough, Snoring, Wheezing, Hemoptysis, Sputum production, Shortness of breath Cardiovascular: DENIES: Chest pain, Palpitations, Syncope, Dyspnea on Exertion , PND, Lower Extremity Edema, Orthopnea, Claudication Gastrointestinal: DENIES: Abdominal pain, Black stools, Bloody stools, Constipation, Diarrhea, Nausea, Vomiting, Difficulty Swallowing, Anorexia Genitourinary: DENIES: Sexual dysfunction, Urinary frequency, Urinary incontinence, Urgency, Hematuria, Dysuria, Nocturia, Penile Discharge, Testicular Pain, Testicular Swelling Musculoskeletal: DENIES: Joint pain, Muscle aches, Stiffness, Joint Swelling, Back pain, Neck pain Integumentary: DENIES: Abnormal pigmentation, Nail changes, Pruritus, Rash Hematologic/lymphatic: DENIES: Bruising, Lymphadenopathy Immunologic/allergic: DENIES: Eczema, Urticaria Neurologic: DENIES: Abnormal gait, Headache, Localized weakness, Paresthesias, Seizures, Speech Problems, Tremor, Poor Balance Past Family Social History Coded Allergies: ampicillin (Unverified Allergy, Severe, 04/19/17) Reported Medications Valacyclovir (Valtrex) 1,000 Mg Tab, 1000 MG PO DAILY for Mgmt Viral Infection, #30 TAB 0 Refills 08/06/17 Tadalafil (Cialis) 2.5 Mg Tab, 2.5 MG PO DAILY, TAB 0 Refills Do not exceed 1 dose/day. 08/06/17 Omeprazole (Omeprazole) 20 Mg Tab, 20 MG PO BID, #30 TAB 0 Refills 08/06/17 Irbesartan (Irbesartan) 300 Mg Tab, 300 MG PO DAILY for Blood Pressure Management, #30 TAB 0 Refills 08/06/17 Allopurinol (Allopurinol) 100 Mg Tab, 150 MG PO DAILY for Gout, #30 TAB 0 Refills 08/06/17 Alprazolam (Xanax) 1 Mg Tab, 1 MG PO TID Y for ANXIETY, TAB 0 Refills 08/06/17 Zaleplon (Zaleplon) 10 Mg Cap, 10 MG PO HS Y for INSOMNIA, CAP 0 Refills 08/06/17 Discontinued Reported Medications Acetaminophen (Tylenol 325 Mg Tab) 325 Mg Tab, 500 MG .XX PRN 04/11/12 Pseudoephedrine Hcl (Pseudoephedrine Hcl) 30 Mg/5 Ml Syrp, 30 MG PO BID 04/11/12 Multiple Vitamins W/ Minerals (Multi Complete) Complete Cap, 1 PO DAILY 04/11/12 Tadalafil (Cialis) 20 Mg Tab, 20 MG PO 1-2WK 04/11/12 Alprazolam (Xanax 0.5 mg) 0.5 Mg Tab, 0.5 MG .XX HS 04/11/12 Zaleplon (Sonata 10 Mg Cap) 10 Mg Cap, 10 MG .XX PRN 04/11/12 [Excedrin] No Conflict Check, PO DAILYPRN 03/07/11 Valacyclovir Hcl (Valtrex) 1 Gm Tab, 1 GM PO DAILY 03/07/11 Propranolol ER (Inderal LA) 60 Mg Capcr, 60 MG PO DAILY 03/07/11 Omeprazole (Prilosec) 10 Mg Cap, 20 MG PO BID 03/07/11 Irbesartan (Avapro) 150 Mg Tab, 300 MG PO DAILY 03/07/11 Allopurinol (Allopurinol) 100 Mg Tab, 150 MG PO DAILY 03/07/11 Discontinued Scripts Doxycycline Hyclate 100 mg (Doxycycline Hyclate 100 mg) 100 Mg Tab, 100 MG PO BID, #14 TAB Prov:Javid Ward MD 02/01/16 Current Medications Medications (Trade) Dose Ordered Sig/Ga Route Start Time Stop Time Status Last Admin (NS Flush) 2 ml UNSCH PRN IVF 08/06/17 02:45 (Tylenol) 650 mg Q4H PRN PO 08/06/17 15:00 (Milk Of Magnesia Liq) 30 ml DAILY PRN PO 08/06/17 15:00 (Mag-Al Plus Susp Liq) 30 ml Q6H PRN PO 08/06/17 15:00 (Desyrel) 50 mg HS PRN PO 08/06/17 15:00 (Atarax) 50 mg Q6H PRN PO 08/06/17 15:00 08/07/17 20:46 (Romazicon Inj) 0.2 mg Q1M PRN IV PUSH 08/06/17 15:00 (Ativan) 1 mg Q4H PRN PO 08/06/17 15:00 08/08/17 02:17 (Ativan Inj) 1 mg Q4H PRN IV PUSH 08/06/17 15:00 (Ativan) 2 mg Q2H PRN PO 08/06/17 15:00 (Ativan Inj) 2 mg Q2H PRN IV PUSH 08/06/17 15:00 (Ativan Inj) 2 mg Q1H PRN IV PUSH 08/06/17 15:00 (Ativan Inj) 2 mg Q15M PRN IV PUSH 08/06/17 15:00 (Zyloprim) 150 mg DAILY PO 08/07/17 09:00 08/08/17 08:30 (Valtrex) 1,000 mg DAILY PO 08/07/17 09:00 08/08/17 08:29 (Pill Splitter) 1 ea UNSCH PRN OTHER 08/06/17 16:15 (Protonix) 20 mg BID PO 08/06/17 21:00 08/08/17 08:27 (Vitamin B1) 100 mg DAILY PO 08/06/17 16:30 08/08/17 08:28 (Folate) 1 mg DAILY PO 08/06/17 16:30 08/08/17 08:29 (Theragran) 1 tab DAILY PO 08/06/17 16:30 08/08/17 08:29 (Cozaar) 100 mg DAILY PO 08/07/17 09:00 08/08/17 08:30 (Lexapro) 10 mg HS PO 08/07/17 21:00 08/07/17 20:43 Family Psych History Patient denies family psychiatric history Social History Patient was born and raised in [place], he lives in [place] with his , 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 2) Intelligent. Has access to healthcare. Physical Exam Vital Signs Vital Signs Date Time Temp Pulse Resp B/P (MAP) Pulse Ox O2 Delivery O2 Flow Rate FiO2 08/08/17 06:20 98.0 67 16 122/65 (84) 97 08/06/17 06:23 Room Air 08/06/17 04:02 2.00 I/O 08/08/17 08/08/17 08/09/17 08:00 16:00 00:00 Intake Total 840 ml 240 ml Balance 840 ml 240 ml Lab Results Test 08/08/17 05:55 White Blood Count 4.0 TH/MM3 Red Blood Count 4.40 MIL/MM3 Hemoglobin 16.0 GM/DL Hematocrit 45.7 % Mean Corpuscular Volume 103.8 FL Mean Corpuscular Hemoglobin 36.4 PG Mean Corpuscular Hemoglobin Concent 35.1 % Red Cell Distribution Width 13.3 % Platelet Count 62 TH/MM3 Mean Platelet Volume 8.8 FL Mental Status Examination Appearance: Disheveled Consciousness: Alert Orientation: x4 Motor Activity: Normal gait Speech: Unremarkable Language: Adequate Fund of Knowledge: Adequate Attention and Concentration: Adequate Memory: Unremarkable Mood: Sad, Anxious Affect: Sad, Anxious, Other (tearful) Thought Process & Associations: Intact Thought Content: Appropriate Hallucination Type: None Delusion Type: None Suicidal Ideation: Yes (denies intent) Suicidal Plan: No Suicidal Intention: No Homicidal Ideation: No Homicidal Plan: No Homicidal Intention: No Insight: Fair Judgment: Impulsive Assessment & Plan Problem List: (1) Severe major depression, single episode, without psychotic features ICD Codes: F32.2 - Major depressive disorder, single episode, severe without psychotic features Assessment & Plan: I have seen and examined this patient, discussed personally with Dr. Cartwright, with nurse in charge, reviewed the documentation in the chart, I agree and concur with Dr. Cartwright assessment and plan. Assessment & Plan Estimated LOS: Aryan Dickey MD Aug 08, 2017 14:46
[2017-08-08 18:00] VITALS: BP 128/74; PULSE 63; RESP 16; TEMP 97.7; O2SAT 96
[2017-08-08] MEDS: traZODone HCL 50 MG TAB PO PRN (22:36)
[2017-08-08] MEDS: ESCITALOPRAM OXALATE 10 MG TAB PO SCH (22:37)
[2017-08-09] MEDS: hydrOXYzine HCL 50 MG TAB PO PRN ×3 (01:02→22:29)
[2017-08-09 06:05] VITALS: BP 109/58; PULSE 69; RESP 18; TEMP 98.2; O2SAT 97
[2017-08-09] MEDS: valACYclovir HCL 500 MG TAB PO SCH (08:41)
[2017-08-09] MEDS: LOSARTAN 50 MG TAB PO SCH (08:41)
[2017-08-09] MEDS: FOLIC ACID 1 MG TAB PO SCH (08:42)
[2017-08-09] MEDS: ALLOPURINOL 100 MG TAB PO SCH (08:42)
[2017-08-09] MEDS: SERTRALINE HCL 50 MG TAB PO SCH (08:42)
[2017-08-09] MEDS: THIAMINE HCL 100 MG TAB PO SCH (08:42)
[2017-08-09] MEDS: MULTIVITAMIN TAB PO SCH (08:42)
[2017-08-09] MEDS: PANTOPRAZOLE SOD 20 MG DELAYED RELEASE TAB PO SCH ×2 (08:42→21:07)
--- NOTE | 2017-08-09 09:00 | HHI.PYPN ---
Subjective Chief Complaint: recent suicide attempt via overdose Remarks Patient seen for follow-up, chart reviewed. Discussion with nursing staff reported the patient has some difficulty sleeping last evening despite having taking trazodone and Atarax. She found lying hospitalist sleep was able to wake up to interact with interview today. Patient states that he has been feeling somewhat dizzy when he is gets up to use the restroom and believes it is due to the current antidepressant. Patient states that his mood has been "okay", is denying any suicidal ideations at this time. Discussion about possibility of rehabilitation from alcohol use was carried out which patient states that he cannot believe he needs this service stating "I can stop at anytime". As per reports in chart the patient had been increasing his alcohol intake was discussed which patient acknowledged as well as a broader-based approach to his current psychosocial stressors and recent factors that have led him to have worsening depression as well as recent suicide attempt was reviewed. Patient states he would consider rehabilitation program for alcohol use for now. Review of Systems Except as stated in HPI: all other systems reviewed are Neg Mental Status Examination Appearance: Disheveled Consciousness: Alert Orientation: x4 Motor Activity: Normal gait Speech: Unremarkable Language: Adequate Fund of Knowledge: Adequate Attention and Concentration: Adequate Memory: Unremarkable Mood: Sad, Anxious Affect: Sad, Anxious Thought Process & Associations: Intact, Linear Thought Content: Appropriate Hallucination Type: None Delusion Type: None Suicidal Ideation: Yes (denies at this time) Suicidal Plan: No Suicidal Intention: No Homicidal Ideation: No Homicidal Plan: No Homicidal Intention: No Insight: Poor Judgment: Impulsive Results Vitals/IOs Vital Signs Date Time Temp Pulse Resp B/P (MAP) Pulse Ox O2 Delivery O2 Flow Rate FiO2 08/09/17 06:05 98.2 69 18 109/58 (75) 97 08/06/17 06:23 Room Air 08/06/17 04:02 2.00 Intake and Output 08/09/17 08/09/17 08/10/17 08:00 16:00 00:00 Intake Total 240 ml Balance 240 ml Assessment & Plan Problem List: (1) Severe major depression, single episode, without psychotic features ICD Codes: F32.2 - Major depressive disorder, single episode, severe without psychotic features Assessment & Plan Patient at this time continues to feel remorseful about recent suicide attempt and wanted to be discharged to continue his treatment outpatient. To the patient's report of dizziness related to his current antidepressant, will discontinue citalopram and start sertraline 50 mg by mouth daily for depression as well as the addition of mirtazapine 15 mg by mouth at bedtime as adjunct as well as to assist in sleep disturbance. Patient continues on CIWA protocol which up to now has reported low scores not requiring supplemental lorazepam for withdrawal symptoms. Continue to monitor for withdrawal, continue to encourage patient to maintain personal hygiene and participation in groups and activities. Due to monitor mood and behavior. Collateral information from pending. Discharge planning in progress Justification for Cont. Inpt. At risk for further decompensation if at lower level of care Discharge Planning Patient was discharged back to once psychiatrically stable. Vicente Cartwright MD Aug 09, 2017 09:00
[2017-08-09] MEDS: BACITRACIN TOP OINT 15 GM TUBE TOPICAL SCH ×3 (09:30→21:06)
--- NOTE | 2017-08-09 09:41 | PD.TTN ---
Patient Problems 1. Discharge planning 2. Medication compliance 3. Knowledge deficit 4. Lack of coping skills Progress Toward Goals Provider Present: Dr. Yuliana Cartwright Provider Input: Dr. Cartwright reported the patient remains depressed and will require medication adjustments. Patient would benefit from substance abuse rehabilitation. Psychiatric Counselors Present: LOREN Vela Psych Therapist Input: Counselor reported that the patient appears high-risk for suicide as he present hopeless. Patient and his are having marital issues related to patient's ongoing drinking and attempted suicide. Group Spec/RT/OT/HERNADEZ Present: SATYA Guallpa Group Spec/RT/OT/HERNADEZ Input: Patient is new to the unit. Documentation Scribe: LOREN Vela Date Resolved: Aug 08, 2017 Deidre Lyons Aug 09, 2017 09:41
[2017-08-09] MEDS: BETAMETHASONE DIPROPIONATE 0.05% CREAM 15 GM TOPICAL SCH ×2 (13:15→21:06)
[2017-08-09] MEDS ORDERED: BACITRACIN TOP OINT 15 GM TUBE TOPICAL SCH (13:15)
--- NOTE | 2017-08-09 13:17 | HHI.PR ---
Subjective Remarks Follow-up for medical management Patient complaining of rash on his fingers and a blister on his toe from walking. Otherwise no other complaints. Discussed case with patient's nurse. Objective Vitals Vital Signs Date Time Temp Pulse Resp B/P (MAP) Pulse Ox O2 Delivery O2 Flow Rate FiO2 08/09/17 06:05 98.2 69 18 109/58 (75) 97 08/08/17 18:00 97.7 63 16 128/74 (92) 96 I/O 08/08/17 08/08/17 08/08/17 08/09/17 08/09/17 08/09/17 07:00 15:00 23:00 07:00 15:00 23:00 Intake Total 240 ml 840 ml 1200 ml 240 ml 120 ml Balance 240 ml 840 ml 1200 ml 240 ml 120 ml Intake Oral 240 ml 840 ml 1200 ml 240 ml 120 ml # Voids 2 2 2 Result Diagram: 08/08/17 0555 08/07/17 1116 Objective Remarks GENERAL: in NAD SKIN: + flacky pinkish rask btwn fingers . open blister on left toe measure about 1 cm. CARDIOVASCULAR: Regular rate and rhythm without murmurs, gallops, or rubs. RESPIRATORY: Breath sounds equal bilaterally. No accessory muscle use. GASTROINTESTINAL: Abdomen soft, non-tender, nondistended. MUSCULOSKELETAL: No cyanosis, or edema. BACK: Nontender without obvious deformity. No CVA tenderness. NEURO: mild tremors of hands with arms out. Medications and IVs Current Medications Sodium Chloride (NS Flush) 2 ml UNSCH PRN IVF FLUSH AFTER USING IV ACCESS; Start 08/06/17 at 02:45 Sodium Chloride 1,000 ml @ 1,000 mls/hr Q1H ONCE IV Last administered on t 02:46; Start 08/06/17 at 02:34; Stop 08/06/17 at 03:33; Status DC Acetaminophen (Tylenol) 650 mg Q4H PRN PO Pain 1-5 or Temp >101F; Start at 15:00 Magnesium Hydroxide (Milk Of Magnesia Liq) 30 ml DAILY PRN PO CONSTIPATION; Start 08/06/17 at 15:00 Al Hydrox/Mg Hydrox/Simethicone (Mag-Al Plus Susp Liq) 30 ml Q6H PRN PO DYSPEPSIA; Start 08/06/17 at 15:00 Trazodone HCl (Desyrel) 50 mg HS PRN PO INSOMNIA Last administered on 22:36; Start 08/06/17 at 15:00 Hydroxyzine HCl (Atarax) 50 mg Q6H PRN PO ANXIETY Last administered on 01:02; Start 08/06/17 at 15:00 Flumazenil (Romazicon Inj) 0.2 mg Q1M PRN IV PUSH SEE LABEL COMMENTS; Start at 15:00 Lorazepam (Ativan) 1 mg Q4H PRN PO CIWA 8 - 10 Last administered on 08/08/17 02:17; Start 08/06/17 at 15:00 Lorazepam (Ativan Inj) 1 mg Q4H PRN IV PUSH CIWA 8 - 10; Start 08/06/17 at 15: 00 Lorazepam (Ativan) 2 mg Q2H PRN PO CIWA 11-14; Start 08/06/17 at 15:00 Lorazepam (Ativan Inj) 2 mg Q2H PRN IV PUSH CIWA 11-14; Start 08/06/17 at 15:00 Lorazepam (Ativan Inj) 2 mg Q1H PRN IV PUSH CIWA 15-20; Start 08/06/17 at 15:00 Lorazepam (Ativan Inj) 2 mg Q15M PRN IV PUSH CIWA > 20; Start 08/06/17 at 15:00 Allopurinol (Zyloprim) 150 mg DAILY PO Last administered on 08/09/17 08:42; Start 08/07/17 at 09:00 Valacyclovir HCl (Valtrex) 1,000 mg DAILY PO Last administered on 08/09/17 08: 41; Start 08/07/17 at 09:00 Non-Formulary Medication 20 mg BID PO ; Start 08/06/17 at 21:00; Status UNV Miscellaneous (Pill Splitter) 1 ea UNSCH PRN OTHER SEE LABEL COMMENTS; Start 08/06/17 at 16:15 Pantoprazole Sodium (Protonix) 20 mg BID PO Last administered on 08/09/17 08: 42; Start 08/06/17 at 21:00 Thiamine HCl (Vitamin B1) 100 mg DAILY PO Last administered on 08/09/17 08:42 ; Start 08/06/17 at 16:30 Folic Acid (Folate) 1 mg DAILY PO Last administered on 08/09/17 08:42; Start 08/06/17 at 16:30 Multivitamins (Theragran) 1 tab DAILY PO Last administered on 08/09/17 08:42; Start 08/06/17 at 16:30 Non-Formulary Medication 300 mg DAILY PO ; Start 08/07/17 at 09:00; Status UNV Losartan Potassium (Cozaar) 100 mg DAILY PO Last administered on 08/09/17 08: 41; Start 08/07/17 at 09:00 Escitalopram Oxalate (Lexapro) 10 mg HS PO Last administered on 08/08/17 22:37 ; Start 08/07/17 at 21:00; Stop 08/09/17 at 07:43; Status DC Sertraline HCl (Zoloft) 50 mg DAILY PO Last administered on 08/09/17 08:42; Start 08/09/17 at 09:00 Mirtazapine (Remeron) 15 mg HS PO ; Start 08/09/17 at 21:00 Bacitracin (Baciguent Oint) 1 applic Q8HR TOPICAL Last administered on 09:30; Start 08/09/17 at 09:30 A/P Assessment and Plan 66-year-old male who was العراقي act secondary to suicide attempt from overdose Overdose with Xanax/suicide attempt/major depressive disorder/العراقي act -Patient being managed by inpatient psychiatrist. -Labs reviewed. Alcohol abuse -patient does have mild tremors today. maybe withdrawing from alcohol vs benzos -on CIWA protocol but psych may want to consider schedule benzos with taper. -Continue with CIWA protocol. on thiamine, multivitamin, folic acid. Thrombocytopenia -Most likely secondary to bone suppression from alcoholism. -Patient does not have any active bleeding. -Continue to monitor platelet to assure stabilization. Hypertension -Home medication resumed. GERD/gout -continue with home medication rash -will give betamethasone. most likely from dry skin and washing hands excessively. blister -may has bacitracin. Discharge Planning Patient is medically clear from a medical standpoint for discharge. Yasmin Castelan MD Aug 09, 2017 13:17
[2017-08-09] MEDS: LORazepam 1 MG TAB PO PRN (17:11)
[2017-08-09 18:00] VITALS: BP 142/96; PULSE 61; RESP 18; TEMP 97.4; O2SAT 98
[2017-08-09] MEDS: MIRTAZAPINE 15 MG TAB PO SCH (21:07)
[2017-08-09] MEDS: traZODone HCL 50 MG TAB PO PRN (21:07)
[2017-08-10] MEDS: BACITRACIN TOP OINT 15 GM TUBE TOPICAL SCH ×3 (06:00→20:56)
[2017-08-10 06:17] VITALS: BP 112/68; PULSE 64; RESP 18; TEMP 98; O2SAT 98
[2017-08-10] MEDS: SERTRALINE HCL 50 MG TAB PO SCH (08:52)
[2017-08-10] MEDS: MULTIVITAMIN TAB PO SCH (08:52)
[2017-08-10] MEDS: PANTOPRAZOLE SOD 20 MG DELAYED RELEASE TAB PO SCH ×2 (08:52→20:56)
[2017-08-10] MEDS: THIAMINE HCL 100 MG TAB PO SCH (08:52)
[2017-08-10] MEDS: LOSARTAN 50 MG TAB PO SCH (08:53)
[2017-08-10] MEDS: valACYclovir HCL 500 MG TAB PO SCH (08:53)
[2017-08-10] MEDS: ALLOPURINOL 100 MG TAB PO SCH (08:53)
[2017-08-10] MEDS: FOLIC ACID 1 MG TAB PO SCH (08:54)
[2017-08-10] MEDS: BETAMETHASONE DIPROPIONATE 0.05% CREAM 15 GM TOPICAL SCH ×2 (09:00→20:56)
--- NOTE | 2017-08-10 12:40 | HHI.PR ---
Subjective Remarks f/u for medical management patient stated he feels like he is withdrawing any benzos. He stated that the nurse asked the psychiatrist twice a day and he will not give him any. Otherwise he had no other complaints. He stated that the betamethasone was helping his rash. No acute events. Objective Vitals Vital Signs Date Time Temp Pulse Resp B/P (MAP) Pulse Ox O2 Delivery O2 Flow Rate FiO2 08/10/17 06:17 98.0 64 18 112/68 (83) 98 08/09/17 18:00 97.4 61 18 142/96 (111) 98 I/O 08/09/17 08/09/17 08/09/17 08/10/17 08/10/17 08/10/17 07:00 15:00 23:00 07:00 15:00 23:00 Intake Total 240 ml 840 ml 960 ml 0 ml 240 ml Balance 240 ml 840 ml 960 ml 0 ml 240 ml Intake Oral 240 ml 840 ml 960 ml 0 ml 240 ml # Voids 2 6 2 2 Result Diagram: 08/08/17 0555 08/07/17 1116 Objective Remarks GENERAL: in NAD SKIN: + flacky pinkish rask btwn fingers . open blister on left toe measure about 1 cm. CARDIOVASCULAR: Regular rate and rhythm without murmurs, gallops, or rubs. RESPIRATORY: Breath sounds equal bilaterally. No accessory muscle use. GASTROINTESTINAL: Abdomen soft, non-tender, nondistended. MUSCULOSKELETAL: No cyanosis, or edema. BACK: Nontender without obvious deformity. No CVA tenderness. NEURO: mild tremors of hands with arms out. Medications and IVs Current Medications Sodium Chloride (NS Flush) 2 ml UNSCH PRN IVF FLUSH AFTER USING IV ACCESS; Start 08/06/17 at 02:45 Sodium Chloride 1,000 ml @ 1,000 mls/hr Q1H ONCE IV Last administered on t 02:46; Start 08/06/17 at 02:34; Stop 08/06/17 at 03:33; Status DC Acetaminophen (Tylenol) 650 mg Q4H PRN PO Pain 1-5 or Temp >101F; Start at 15:00 Magnesium Hydroxide (Milk Of Magnesia Liq) 30 ml DAILY PRN PO CONSTIPATION; Start 08/06/17 at 15:00 Al Hydrox/Mg Hydrox/Simethicone (Mag-Al Plus Susp Liq) 30 ml Q6H PRN PO DYSPEPSIA; Start 08/06/17 at 15:00 Trazodone HCl (Desyrel) 50 mg HS PRN PO INSOMNIA Last administered on 21:07; Start 08/06/17 at 15:00; Stop 08/10/17 at 10:41; Status DC Hydroxyzine HCl (Atarax) 50 mg Q6H PRN PO ANXIETY Last administered on 22:29; Start 08/06/17 at 15:00 Flumazenil (Romazicon Inj) 0.2 mg Q1M PRN IV PUSH SEE LABEL COMMENTS; Start at 15:00 Lorazepam (Ativan) 1 mg Q4H PRN PO CIWA 8 - 10 Last administered on 08/09/17 17:11; Start 08/06/17 at 15:00 Lorazepam (Ativan Inj) 1 mg Q4H PRN IV PUSH CIWA 8 - 10; Start 08/06/17 at 15: 00 Lorazepam (Ativan) 2 mg Q2H PRN PO CIWA 11-14; Start 08/06/17 at 15:00 Lorazepam (Ativan Inj) 2 mg Q2H PRN IV PUSH CIWA 11-14; Start 08/06/17 at 15:00 Lorazepam (Ativan Inj) 2 mg Q1H PRN IV PUSH CIWA 15-20; Start 08/06/17 at 15:00 Lorazepam (Ativan Inj) 2 mg Q15M PRN IV PUSH CIWA > 20; Start 08/06/17 at 15:00 Allopurinol (Zyloprim) 150 mg DAILY PO Last administered on 08/10/17 08:53; Start 08/07/17 at 09:00 Valacyclovir HCl (Valtrex) 1,000 mg DAILY PO Last administered on 08/10/17 08: 53; Start 08/07/17 at 09:00 Non-Formulary Medication 20 mg BID PO ; Start 08/06/17 at 21:00; Status UNV Miscellaneous (Pill Splitter) 1 ea UNSCH PRN OTHER SEE LABEL COMMENTS; Start 08/06/17 at 16:15 Pantoprazole Sodium (Protonix) 20 mg BID PO Last administered on 08/10/17 08: 52; Start 08/06/17 at 21:00 Thiamine HCl (Vitamin B1) 100 mg DAILY PO Last administered on 08/10/17 08:52 ; Start 08/06/17 at 16:30 Folic Acid (Folate) 1 mg DAILY PO Last administered on 08/10/17 08:54; Start 08/06/17 at 16:30 Multivitamins (Theragran) 1 tab DAILY PO Last administered on 08/10/17 08:52; Start 08/06/17 at 16:30 Non-Formulary Medication 300 mg DAILY PO ; Start 08/07/17 at 09:00; Status UNV Losartan Potassium (Cozaar) 100 mg DAILY PO Last administered on 08/10/17 08: 53; Start 08/07/17 at 09:00 Escitalopram Oxalate (Lexapro) 10 mg HS PO Last administered on 08/08/17 22:37 ; Start 08/07/17 at 21:00; Stop 08/09/17 at 07:43; Status DC Sertraline HCl (Zoloft) 50 mg DAILY PO Last administered on 08/10/17 08:52; Start 08/09/17 at 09:00 Mirtazapine (Remeron) 15 mg HS PO Last administered on 08/09/17 21:07; Start 08/09/17 at 21:00 Bacitracin (Baciguent Oint) 1 applic Q8HR TOPICAL Last administered on 21:06; Start 08/09/17 at 09:30 Betamethasone Dipropionate (Diprosone 0.05% Cream) 1 applic BID TOPICAL Last administered on 08/10/17 09:00; Start 08/09/17 at 13:15 Bacitracin (Baciguent Oint) 1 applic Q12HR TOPICAL ; Start 08/09/17 at 13:15; Stop 08/09/17 at 13:18; Status DC Trazodone HCl (Desyrel) 50 mg HS PO ; Start 08/10/17 at 21:00 A/P Assessment and Plan 66-year-old male who was العراقي act secondary to suicide attempt from overdose Overdose with Xanax/suicide attempt/major depressive disorder/العراقي act -Patient being managed by inpatient psychiatrist. -Labs reviewed. Alcohol abuse -patient does have mild tremors today. maybe withdrawing from alcohol vs benzos -on CIWA protocol but psych may want to consider schedule benzos with taper. -Continue with CIWA protocol. on thiamine, multivitamin, folic acid. Thrombocytopenia -Most likely secondary to bone suppression from alcoholism. -Patient does not have any active bleeding. -Continue to monitor platelet to assure stabilization. Hypertension -Home medication resumed. GERD/gout -continue with home medication rash -Improving. Continue betamethasone. blister -Continue with bacitracin. Discharge Planning Patient is medically clear from a medical standpoint. Yasmin Castelan MD Aug 10, 2017 12:40
[2017-08-10] MEDS: hydrOXYzine HCL 50 MG TAB PO PRN ×3 (13:27→20:55)
--- NOTE | 2017-08-10 14:15 | HHI.PYPN ---
Subjective Chief Complaint: recent suicide attempt via overdose Remarks Patient seen for follow-up, chart reviewed. Discussion with nursing staff reported that the patient was noted to be anxious yesterday which he had received hydroxyzine and ativan yesterday. It was noted that the patient had noncontinuous sleep. Patient was found lying on hospital bed, calm and cooperative with interview. He states that he has been feeling "better" and tolerating recent change to antidepressant stating feeling "not so spacey". He also reports having had a panic attack yesterday and that this was the first time he had experienced this. He also reports that he had slept better last night. He mentions that he has been visited by his daily and feels that she is being supportive of his current hospitalization and treatment. 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 Review of Systems Except as stated in HPI: all other systems reviewed are Neg Mental Status Examination Appearance: Disheveled Consciousness: Alert Orientation: x4 Motor Activity: Normal gait Speech: Unremarkable Language: Adequate Fund of Knowledge: Adequate Attention and Concentration: Adequate Memory: Unremarkable Mood: Anxious Affect: Anxious Thought Process & Associations: Intact, Goal directed, Linear Thought Content: Appropriate Hallucination Type: None Delusion Type: None Suicidal Ideation: Yes (denies at this time) Suicidal Plan: No Suicidal Intention: No Homicidal Ideation: No Homicidal Plan: No Homicidal Intention: No Insight: Poor Judgment: Impulsive Results Vitals/IOs Vital Signs Date Time Temp Pulse Resp B/P (MAP) Pulse Ox O2 Delivery O2 Flow Rate FiO2 08/10/17 06:17 98.0 64 18 112/68 (83) 98 Intake and Output 08/10/17 08/10/17 08/10/17 07:59 15:59 23:59 Intake Total 240 ml 240 ml Balance 240 ml 240 ml Assessment & Plan Problem List: (1) Severe major depression, single episode, without psychotic features ICD Codes: F32.2 - Major depressive disorder, single episode, severe without psychotic features Assessment & Plan Patient tolerating first dose of sertraline well as well as reported having improved sleep but continues to have nighttime awakenings. Sertraline 50 mg by mouth daily for depression, continue mirtazapine 50 mg by mouth at bedtime as agitated depression as well as for sleep disturbance. 2 trazodone 50 mg by mouth at bedtime. Continue to monitor mood and behavior. Patient continues to be at increased risk for self-harm due to recent suicide attempt via overdose, limited insight into impact of his current alcohol use in regards to his mental health. Patient is considering outpatient rehabilitation program for alcohol use but refuses inpatient rehabilitation program for now. Patient currently in process with [facility] through [facility] ([facility] . Patient at this time he expresses wanting voluntary admission which documents were provided for the same. Discharge planning in progress Justification for Cont. Inpt. At risk for further decompensation if at lower level of care Discharge Planning Patient to be discharged back to his residence once psychiatrically stable Vicente Cartwright MD Aug 10, 2017 14:15
--- NOTE | 2017-08-10 15:09 | PD.TTN ---
Patient Problems 1. Discharge planning 2. Medication compliance 3. Knowledge deficit 4. Lack of coping skills Progress Toward Goals Provider Present: Dr. Yuliana Cartwright Provider Input: 08/10/2017 patient's medication is being adjusted to address his mood/behavior Dr. Cartwright reported the patient remains depressed and will require medication adjustments. Patient would benefit from substance abuse rehabilitation. Nurse(s) Present: EUGENIA Gil Nurse(s) Input: Patient is eating meals, and taking his medication Psychiatric Counselors Present: ANNABEL Wolfe Psych Therapist Input: 08/10/2017 Counselor will provide patient a substance package, discuss outpatient treatment Counselor reported that the patient appears high-risk for suicide as he present hopeless. Patient and his are having marital issues related to patient's ongoing drinking and attempted suicide. Group Spec/RT/OT/HERNADEZ Present: SATYA Guallpa Group Spec/RT/OT/HERNADEZ Input: 08/10/2017; patient attends limited groups Patient is new to the unit. Documentation Scribe: ANNABEL Wolfe Date Resolved: Aug 08, 2017 Violeta Leija Aug 10, 2017 15:09
[2017-08-10 18:00] VITALS: BP 124/71; PULSE 64; RESP 18; TEMP 98.1; O2SAT 98
[2017-08-10] MEDS: traZODone HCL 50 MG TAB PO SCH (20:56)
[2017-08-10] MEDS: MIRTAZAPINE 15 MG TAB PO SCH (20:56)
[2017-08-11] MEDS: hydrOXYzine HCL 50 MG TAB PO PRN ×2 (02:34→12:01)
[2017-08-11 06:03] VITALS: BP 138/63; PULSE 59; RESP 18; TEMP 97.9; O2SAT 94
[2017-08-11] MEDS: BACITRACIN TOP OINT 15 GM TUBE TOPICAL SCH ×3 (06:55→19:56)
[2017-08-11] MEDS: LOSARTAN 50 MG TAB PO SCH ×2 (09:00→10:01)
[2017-08-11] MEDS: BETAMETHASONE DIPROPIONATE 0.05% CREAM 15 GM TOPICAL SCH ×2 (09:00→20:02)
[2017-08-11] MEDS: FOLIC ACID 1 MG TAB PO SCH (10:01)
[2017-08-11] MEDS: PANTOPRAZOLE SOD 20 MG DELAYED RELEASE TAB PO SCH ×2 (10:01→19:56)
[2017-08-11] MEDS: THIAMINE HCL 100 MG TAB PO SCH (10:01)
[2017-08-11] MEDS: SERTRALINE HCL 50 MG TAB PO SCH (10:01)
[2017-08-11] MEDS: MULTIVITAMIN TAB PO SCH (10:01)
[2017-08-11] MEDS: ALLOPURINOL 100 MG TAB PO SCH (10:03)
[2017-08-11] MEDS: valACYclovir HCL 500 MG TAB PO SCH (10:03)
--- NOTE | 2017-08-11 11:58 | HHI.PR ---
Subjective Remarks Follow-up for medical management Patient very anxious today. He stated that he is withdrawing from his Xanax and that he feels like his tremors getting worse. Patient also asking for Maalox for acid reflux. Otherwise he has no other complaints. Discussed case with patient's nurse and she stated that she is aware of this and that she is going to give him a dose of Ativan and will notify the psychiatrist. Objective Vitals Vital Signs Date Time Temp Pulse Resp B/P (MAP) Pulse Ox O2 Delivery O2 Flow Rate FiO2 08/11/17 06:03 97.9 59 18 138/63 (88) 94 08/10/17 18:00 98.1 64 18 124/71 (88) 98 I/O 08/10/17 08/10/17 08/10/17 08/11/17 08/11/17 08/11/17 07:00 15:00 23:00 07:00 15:00 23:00 Intake Total 0 ml 480 ml 800 ml 680 ml Balance 0 ml 480 ml 800 ml 680 ml Intake Oral 0 ml 480 ml 800 ml 680 ml # Voids 2 1 Result Diagram: 08/08/17 0555 08/07/17 1116 Objective Remarks GENERAL: in NAD but agitated SKIN: + flacky pinkish rask btwn fingers . open blister on left toe measure about 1 cm. CARDIOVASCULAR: Regular rate and rhythm without murmurs, gallops, or rubs. RESPIRATORY: Breath sounds equal bilaterally. No accessory muscle use. GASTROINTESTINAL: Abdomen soft, non-tender, nondistended. MUSCULOSKELETAL: No cyanosis, or edema. BACK: Nontender without obvious deformity. No CVA tenderness. NEURO: mild to moderate tremors of hands at rest. Medications and IVs Reported Meds & Active Scripts Active Reported Valtrex (Valacyclovir HCl) 1,000 Mg Tab 1,000 Mg PO DAILY Cialis (Tadalafil) 2.5 Mg Tab 2.5 Mg PO DAILY Do not exceed 1 dose/day. Omeprazole 20 Mg Tab 20 Mg PO BID Irbesartan 300 Mg Tab 300 Mg PO DAILY Allopurinol 100 Mg Tab 150 Mg PO DAILY Xanax (Alprazolam) 1 Mg Tab 1 Mg PO TID PRN Zaleplon 10 Mg Cap 10 Mg PO HS PRN A/P Assessment and Plan 66-year-old male who was العراقي act secondary to suicide attempt from overdose Overdose with Xanax/suicide attempt/major depressive disorder/العراقي act -Patient being managed by inpatient psychiatrist. -Labs reviewed. Alcohol abuse -Patient's agitation and tremors are worsening. maybe withdrawing from alcohol vs benzos -on CIWA protocol but psych may want to consider schedule benzos with taper. This will be up to the psychiatrist. -Continue with CIWA protocol. on thiamine, multivitamin, folic acid. Thrombocytopenia -Most likely secondary to bone suppression from alcoholism. -Patient does not have any active bleeding. -Continue to monitor platelet to assure stabilization. Hypertension -Home medication resumed. GERD/gout -continue with home medication rash -Improving. Continue betamethasone. blister -Continue with bacitracin. Discussed management with patient's nurse. Yasmin Castelan MD Aug 11, 2017 11:58
[2017-08-11] MEDS: clonazePAM 1 MG TAB PO SCH ×2 (13:49→19:56)
--- NOTE | 2017-08-11 15:20 | HHI.PYPN ---
Subjective Chief Complaint: recent suicide attempt via overdose Remarks Patient seen for follow-up, chart reviewed. Discussion with nursing staff reported the patient continues to be noted to be depressed and increasingly anxious last evening which she received 2 doses of Atarax. Patient found sitting in hospital bed, cooperative stated that he has been feeling more anxious lately along with decreased appetite due to the same and noted to have increasing tremors which is affected his mood and feeling overwhelmed. Patient states that prior to his hospitalization he was using up to 3-4 mg of Ativan daily he feels that he may be starting with withdrawal. Patient reports having decrease sleep due to the same despite having taking medications. Patient states that these tremors and anxiety waking up from sleep. Patient this time denies any SI, HI, AVH or delusions. Review of Systems Except as stated in HPI: all other systems reviewed are Neg Mental Status Examination Appearance: Disheveled Consciousness: Alert Orientation: x4 Motor Activity: Normal gait Speech: Unremarkable Language: Adequate Fund of Knowledge: Adequate Attention and Concentration: Adequate Memory: Unremarkable Mood: Anxious Affect: Anxious Thought Process & Associations: Intact, Goal directed, Linear Thought Content: Appropriate Hallucination Type: None Delusion Type: None Suicidal Ideation: Yes (denies at this time) Suicidal Plan: No Suicidal Intention: No Homicidal Ideation: No Homicidal Plan: No Homicidal Intention: No Insight: Poor Judgment: Impulsive Results Vitals/IOs Vital Signs Date Time Temp Pulse Resp B/P (MAP) Pulse Ox O2 Delivery O2 Flow Rate FiO2 08/11/17 06:03 97.9 59 18 138/63 (88) 94 Intake and Output 08/11/17 08/11/17 08/12/17 08:00 16:00 00:00 Intake Total 120 ml Balance 120 ml Assessment & Plan Problem List: (1) Severe major depression, single episode, without psychotic features ICD Codes: F32.2 - Major depressive disorder, single episode, severe without psychotic features Assessment & Plan Patient at this time continues to report some depressive symptoms but also noted to have some tremors which patient may be starting to have withdrawal symptoms from cessation of benzodiazepine use. Patient reported having 3-4 mg of Ativan on a daily basis prior to his hospitalizations. We'll start clonazepam 1 mg by mouth every 12 for prevention of withdrawal as well as to address increased anxiety due to the same. Continue rest of treatment and monitor mood and behavior. Patient provided with telephone number to contact her physician resources network ([phone]) with customer contact representative to ask for who is Ms. Elizondo, but aware that he is required to report himself. Discharge planning in progress Justification for Cont. Inpt. At risk for further decompensation if I lower level care Discharge Planning Patient to return back to his residence with psychiatric stable. Vicente Cartwright MD Aug 11, 2017 15:20
[2017-08-11 18:16] VITALS: BP 133/70; PULSE 83; RESP 16; TEMP 98.4; O2SAT 94
[2017-08-11] MEDS: MIRTAZAPINE 15 MG TAB PO SCH (19:55)
[2017-08-11] MEDS: traZODone HCL 50 MG TAB PO SCH (19:55)
[2017-08-12] MEDS: hydrOXYzine HCL 50 MG TAB PO PRN (02:57)
[2017-08-12] MEDS: BACITRACIN TOP OINT 15 GM TUBE TOPICAL SCH ×3 (05:50→21:21)
[2017-08-12 06:03] VITALS: BP 113/64; PULSE 65; RESP 17; TEMP 98.2; O2SAT 97
--- NOTE | 2017-08-12 07:49 | HHI.PR ---
Subjective Remarks Patient in nad. Says he has less withdrawals symptoms with the new medication clonazepam. No seizures, no tremors. Denies cp, sob, palpitations, n/v/d/c. Objective Vitals Vital Signs Date Time Temp Pulse Resp B/P (MAP) Pulse Ox O2 Delivery O2 Flow Rate FiO2 08/12/17 06:03 98.2 65 17 113/64 (80) 97 08/11/17 18:16 98.4 83 16 133/70 (91) 94 I/O 08/11/17 08/11/17 08/11/17 08/12/17 08/12/17 08/12/17 06:59 14:59 22:59 06:59 14:59 22:59 Intake Total 680 ml 360 ml 600 ml Balance 680 ml 360 ml 600 ml Intake Oral 680 ml 360 ml 600 ml # Voids 1 2 Result Diagram: 08/08/17 0555 Objective Remarks GENERAL: in NAD but agitated SKIN: + flacky pinkish rask btwn fingers . open blister on left toe measure about 1 cm. CARDIOVASCULAR: Regular rate and rhythm without murmurs, gallops, or rubs. RESPIRATORY: Breath sounds equal bilaterally. No accessory muscle use. GASTROINTESTINAL: Abdomen soft, non-tender, nondistended. MUSCULOSKELETAL: No cyanosis, or edema. BACK: Nontender without obvious deformity. No CVA tenderness. NEURO: mild to moderate tremors of hands at rest. A/P Assessment and Plan 66-year-old male who was العراقي act secondary to suicide attempt from overdose Overdose with Xanax/suicide attempt/major depressive disorder/العراقي act -Patient being managed by inpatient psychiatrist. -Labs reviewed. Alcohol abuse -Patient's agitation and tremors are worsening. maybe withdrawing from alcohol vs benzos -on CIWA protocol, psychiatrist ff. Started scheduled clonazepam -Continue with CIWA protocol. on thiamine, multivitamin, folic acid. Thrombocytopenia -Most likely secondary to bone suppression from alcoholism. -Patient does not have any active bleeding. -Continue to monitor platelet to assure stabilization. Hypertension -Home medication resumed. GERD/gout -continue with home medication Rash -Improving. Continue betamethasone. Blister -Continue with bacitracin. Discussed with the patient, nurse, Geno Olivier MD Aug 12, 2017 07:49
[2017-08-12] MEDS: ALLOPURINOL 100 MG TAB PO SCH (10:03)
[2017-08-12] MEDS: LOSARTAN 50 MG TAB PO SCH (10:03)
[2017-08-12] MEDS: clonazePAM 1 MG TAB PO SCH ×2 (10:04→21:21)
[2017-08-12] MEDS: SERTRALINE HCL 50 MG TAB PO SCH (10:04)
[2017-08-12] MEDS: MULTIVITAMIN TAB PO SCH (10:04)
[2017-08-12] MEDS: BETAMETHASONE DIPROPIONATE 0.05% CREAM 15 GM TOPICAL SCH ×2 (10:04→22:06)
[2017-08-12] MEDS: FOLIC ACID 1 MG TAB PO SCH (10:04)
[2017-08-12] MEDS: PANTOPRAZOLE SOD 20 MG DELAYED RELEASE TAB PO SCH ×2 (10:04→21:21)
[2017-08-12] MEDS: THIAMINE HCL 100 MG TAB PO SCH (10:04)
[2017-08-12] MEDS: valACYclovir HCL 500 MG TAB PO SCH (10:04)
--- NOTE | 2017-08-12 10:54 | HHI.PYPN ---
Subjective Chief Complaint: recent suicide attempt via overdose Remarks Patient seen for follow-up, chart reviewed. Discussion she staff reported the patient noted to have continued tremors but lessening. Patient was seen stimuli in hospital bed, cooperative with administrative underwriter nurse. Patient stated he was feeling "great" and stated he had been sleeping much better than he has past couple of weeks. He had about 8 hours of sleep. She states that he is feeling less anxious after having been started on clonazepam. Patient states that he is noticing now less tremors and noted to be eating better now. Patient states that he was visited by his she was happy about feels is being supportive of his current hospitalization. Patient denies any suicidality at this time. 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 Review of Systems Except as stated in HPI: all other systems reviewed are Neg Mental Status Examination Appearance: Appropriate Consciousness: Alert Orientation: x4 Motor Activity: Normal gait Speech: Unremarkable Language: Adequate Fund of Knowledge: Adequate Attention and Concentration: Adequate Memory: Unremarkable Mood: Anxious Affect: Anxious Thought Process & Associations: Intact, Goal directed, Linear Thought Content: Appropriate Hallucination Type: None Delusion Type: None Suicidal Ideation: Yes (denies at this time) Suicidal Plan: No Suicidal Intention: No Homicidal Ideation: No Homicidal Plan: No Homicidal Intention: No Insight: Poor Judgment: Impulsive Results Vitals/IOs Vital Signs Date Time Temp Pulse Resp B/P (MAP) Pulse Ox O2 Delivery O2 Flow Rate FiO2 08/12/17 06:03 98.2 65 17 113/64 (80) 97 Intake and Output 08/12/17 08/12/17 08/13/17 08:00 16:00 00:00 Intake Total 600 ml 480 ml Balance 600 ml 480 ml Assessment & Plan Problem List: (1) Severe major depression, single episode, without psychotic features ICD Codes: F32.2 - Major depressive disorder, single episode, severe without psychotic features Assessment & Plan Patient at this time continues to be noted very anxious, has been noted to have continued tremors the patient reports has been improving with the start of clonazepam as patient likely exhibiting symptoms of benzodiazepine withdrawal. We'll continue Klonopin 1 mg by mouth every 12 hours for the same, continue sertraline feeling 50 mg by mouth daily for depression as well as mirtazapine 15 mg by mouth at bedtime. Patient to reach out to physicians resource network today. Continue monitor mood and behavior. Discharge planning in progress Justification for Cont. Inpt. At risk for further decompensation if at lower level of care Discharge Planning Patient to return back to his residence once psychiatrically stable. Vicente Cartwright MD Aug 12, 2017 10:54
[2017-08-12 18:24] VITALS: BP 121/52; PULSE 68; RESP 17; TEMP 98.7; O2SAT 94
[2017-08-12] MEDS: traZODone HCL 50 MG TAB PO SCH (21:21)
[2017-08-12] MEDS: MIRTAZAPINE 15 MG TAB PO SCH (21:21)
[2017-08-13] MEDS: hydrOXYzine HCL 50 MG TAB PO PRN ×2 (03:09→15:37)
[2017-08-13] MEDS: BACITRACIN TOP OINT 15 GM TUBE TOPICAL SCH ×3 (06:00→21:45)
[2017-08-13 06:20] VITALS: BP 109/55; PULSE 56; RESP 18; TEMP 97.9; O2SAT 99
--- NOTE | 2017-08-13 07:42 | HHI.PR ---
Subjective Remarks No tremors or seizures. Feels better. No n/v/d/c. No fever or chills. Objective Vitals Vital Signs Date Time Temp Pulse Resp B/P (MAP) Pulse Ox O2 Delivery O2 Flow Rate FiO2 08/13/17 06:20 97.9 56 18 109/55 (73) 99 08/12/17 18:24 98.7 68 17 121/52 (75) 94 I/O 08/12/17 08/12/17 08/12/17 08/13/17 08/13/17 08/13/17 07:00 15:00 23:00 07:00 15:00 23:00 Intake Total 600 ml 480 ml 3980 ml 240 ml Balance 600 ml 480 ml 3980 ml 240 ml Intake Oral 600 ml 480 ml 3980 ml 240 ml # Voids 2 6 1 Objective Remarks GENERAL: in NAD but agitated SKIN: + flacky pinkish rask btwn fingers . open blister on left toe measure about 1 cm. CARDIOVASCULAR: Regular rate and rhythm without murmurs, gallops, or rubs. RESPIRATORY: Breath sounds equal bilaterally. No accessory muscle use. GASTROINTESTINAL: Abdomen soft, non-tender, nondistended. MUSCULOSKELETAL: No cyanosis, or edema. BACK: Nontender without obvious deformity. No CVA tenderness. NEURO: mild to moderate tremors of hands at rest. A/P Assessment and Plan 66-year-old male who was العراقي act secondary to suicide attempt from overdose Overdose with Xanax/suicide attempt/major depressive disorder/العراقي act -Patient being managed by inpatient psychiatrist. -Labs reviewed. Alcohol abuse -Patient's agitation and tremors are worsening. maybe withdrawing from alcohol vs benzos -on CIWA protocol, psychiatrist ff. Started scheduled clonazepam -Continue with CIWA protocol. on thiamine, multivitamin, folic acid. Thrombocytopenia -Most likely secondary to bone suppression from alcoholism. -Patient does not have any active bleeding. -Continue to monitor platelet to assure stabilization. Hypertension -Home medication resumed. GERD/gout -continue with home medication Rash -Improving. Continue betamethasone. Blister -Continue with bacitracin. Discussed with the patient, nurse, Geno Olivier MD Aug 13, 2017 07:42
--- NOTE | 2017-08-13 08:57 | HHI.PYPN ---
Subjective Chief Complaint: recent suicide attempt via overdose Remarks Patient seen for follow-up, chart reviewed. Discussion she staff reported the patient has endorsed less tremor, slept well but did receive Atarax 1 last evening. Patient found lying in hospital bed, cooperative interview today. Patient states that he slept very well, noted to have less tremors today, states his mood has been "good" but reports having some imbalance when getting up to go to the restroom. Patient states that he is not feeling depressed today , reports improved appetite, and denies any suicidal ideations at this time. Patient mentions that he had called PRN which she was advised to present his discharge summary and discharge plan upon release from the hospital at which point they would determine whether he would require another evaluation for recommendations or whether his discharge plan is adequate enough. Discussion about engaging in inpatient rehabilitation program was reviewed which patient is considering. Review of Systems Except as stated in HPI: all other systems reviewed are Neg Mental Status Examination Appearance: Appropriate Consciousness: Alert Orientation: x4 Motor Activity: Normal gait Speech: Unremarkable Language: Adequate Fund of Knowledge: Adequate Attention and Concentration: Adequate Memory: Unremarkable Mood: Anxious (less so today) Affect: Anxious (less so today) Thought Process & Associations: Intact, Goal directed, Linear Thought Content: Appropriate Hallucination Type: None Delusion Type: None Suicidal Ideation: Yes (denies at this time) Suicidal Plan: No Suicidal Intention: No Homicidal Ideation: No Homicidal Plan: No Homicidal Intention: No Insight: Poor Judgment: Impulsive Results Vitals/IOs Vital Signs Date Time Temp Pulse Resp B/P (MAP) Pulse Ox O2 Delivery O2 Flow Rate FiO2 08/13/17 06:20 97.9 56 18 109/55 (73) 99 Intake and Output 08/13/17 08/13/17 08/14/17 08:00 16:00 00:00 Intake Total 240 ml Balance 240 ml Assessment & Plan Problem List: (1) Severe major depression, single episode, without psychotic features ICD Codes: F32.2 - Major depressive disorder, single episode, severe without psychotic features Assessment & Plan Patient noted with improvement mood, continues he noticed to be somewhat anxious but less intense today. Patient denies any suicide ideations at this time. Patient continues to have fine tremor noted but decreasing in intensity which is likely secondary to benzodiazepine withdrawal. Patient to continue current medication regimen for now. Continue to encourage maintenance personal hygiene. Continue recommendations as per primary medical team. Discharge planning in progress Justification for Cont. Inpt. At risk for further decompensation if at lower level of care Discharge Planning Will plan for family meeting prior to his discharge with . Probable discharged to the inpatient rehabilitation program if he agrees as well as continued outpatient follow-up with psychiatrist and therapist. Vicente Cartwright MD Aug 13, 2017 08:57
[2017-08-13] MEDS: MULTIVITAMIN TAB PO SCH (09:00)
[2017-08-13] MEDS: BETAMETHASONE DIPROPIONATE 0.05% CREAM 15 GM TOPICAL SCH ×2 (09:00→21:45)
[2017-08-13] MEDS: valACYclovir HCL 500 MG TAB PO SCH (09:32)
[2017-08-13] MEDS: THIAMINE HCL 100 MG TAB PO SCH (09:32)
[2017-08-13] MEDS: FOLIC ACID 1 MG TAB PO SCH (09:33)
[2017-08-13] MEDS: ALLOPURINOL 100 MG TAB PO SCH (09:33)
[2017-08-13] MEDS: SERTRALINE HCL 50 MG TAB PO SCH (09:34)
[2017-08-13] MEDS: PANTOPRAZOLE SOD 20 MG DELAYED RELEASE TAB PO SCH ×2 (09:35→21:44)
[2017-08-13] MEDS: clonazePAM 1 MG TAB PO SCH ×2 (09:35→21:44)
[2017-08-13] MEDS: LOSARTAN 50 MG TAB PO SCH (09:36)
[2017-08-13 18:00] VITALS: BP 122/59; PULSE 64; RESP 18; TEMP 97.9; O2SAT 92
[2017-08-13] MEDS: ACETAMINOPHEN 325 MG TAB PO PRN (18:13)
[2017-08-13] MEDS: MIRTAZAPINE 15 MG TAB PO SCH (21:44)
[2017-08-13] MEDS: traZODone HCL 50 MG TAB PO SCH (21:44)
[2017-08-14] MEDS: hydrOXYzine HCL 50 MG TAB PO PRN (03:14)
[2017-08-14 05:57] VITALS: BP 107/74; PULSE 56; RESP 18; TEMP 98; O2SAT 95
[2017-08-14] MEDS: BACITRACIN TOP OINT 15 GM TUBE TOPICAL SCH ×3 (06:00→21:47)
--- NOTE | 2017-08-14 07:50 | HHI.PR ---
Subjective Remarks In bed, appears in nad. Feels better. Says he gets dizzy at times especially if changes positions suddenly. Patient says he has orthostatic hypotension, however when he stops his BP meds his BP is not controlled. He is not taking precautions and slows down when changing positions. Objective Vitals Vital Signs Date Time Temp Pulse Resp B/P (MAP) Pulse Ox O2 Delivery O2 Flow Rate FiO2 08/14/17 05:57 98.0 56 18 107/74 (85) 95 08/13/17 19:13 20 08/13/17 18:00 97.9 64 18 122/59 (80) 92 I/O 08/13/17 08/13/17 08/13/17 08/14/17 08/14/17 08/14/17 07:00 15:00 23:00 07:00 15:00 23:00 Intake Total 240 ml 240 ml Balance 240 ml 240 ml Intake Oral 240 ml 240 ml # Voids 1 2 Objective Remarks GENERAL: in NAD but agitated SKIN: + flacky pinkish rask btwn fingers . open blister on left toe measure about 1 cm. CARDIOVASCULAR: Regular rate and rhythm without murmurs, gallops, or rubs. RESPIRATORY: Breath sounds equal bilaterally. No accessory muscle use. GASTROINTESTINAL: Abdomen soft, non-tender, nondistended. MUSCULOSKELETAL: No cyanosis, or edema. BACK: Nontender without obvious deformity. No CVA tenderness. NEURO: mild to moderate tremors of hands at rest. A/P Assessment and Plan 66-year-old male who was العراقي act secondary to suicide attempt from overdose Overdose with Xanax/suicide attempt/major depressive disorder/العراقي act -Patient being managed by inpatient psychiatrist. -Labs reviewed. Alcohol abuse -Patient's agitation and tremors are worsening. maybe withdrawing from alcohol vs benzos -on CIWA protocol, psychiatrist ff. Started scheduled clonazepam -Continue with CIWA protocol. on thiamine, multivitamin, folic acid. Thrombocytopenia -Most likely secondary to bone suppression from alcoholism. -Patient does not have any active bleeding. -Continue to monitor platelet to assure stabilization. Hypertension -Home medication resumed. monitor BP GERD/gout -continue with home medication Rash -Improving. Continue betamethasone. Blister -Continue with bacitracin. Discussed with the patient, nurse Geno Roman MD Aug 14, 2017 07:50
[2017-08-14] MEDS: BETAMETHASONE DIPROPIONATE 0.05% CREAM 15 GM TOPICAL SCH ×2 (09:00→21:00)
[2017-08-14] MEDS: PANTOPRAZOLE SOD 20 MG DELAYED RELEASE TAB PO SCH ×2 (09:00→21:46)
[2017-08-14] MEDS: valACYclovir HCL 500 MG TAB PO SCH (10:54)
[2017-08-14] MEDS: THIAMINE HCL 100 MG TAB PO SCH (10:54)
[2017-08-14] MEDS: MULTIVITAMIN TAB PO SCH (10:55)
[2017-08-14] MEDS: SERTRALINE HCL 50 MG TAB PO SCH (10:55)
[2017-08-14] MEDS: ALLOPURINOL 100 MG TAB PO SCH (10:55)
[2017-08-14] MEDS: clonazePAM 1 MG TAB PO SCH ×2 (10:56→21:46)
[2017-08-14] MEDS: FOLIC ACID 1 MG TAB PO SCH (10:56)
--- NOTE | 2017-08-14 11:25 | HHI.PYPN ---
Subjective Chief Complaint: recent suicide attempt via overdose Remarks Patient seen for follow-up, chart review. Discussion with nursing staff reported the patient had been sleeping well. Patient found lying in hospital bed, cooperative. Patient states that he has been sleeping much better and that his balance is continuing to improve as he is now being up to walk around the unit at least one hour. Patient stated that his mood is "good" denies feeling depressed denies any suicidal ideations. Patient mentions that he is willing to go to inpatient rehabilitation and possibly at the [facility] as he had previous service in his life. Patient provided typewriter aligner with documents that will be need to fax to PRN upon his discharge to assess whether patient has adequate discharge plan prior to being cleared to return back to work. Review of Systems Except as stated in HPI: all other systems reviewed are Neg Mental Status Examination Appearance: Appropriate Consciousness: Alert Orientation: x4 Motor Activity: Normal gait Speech: Unremarkable Language: Adequate Fund of Knowledge: Adequate Attention and Concentration: Adequate Memory: Unremarkable Mood: Anxious (less so today) Affect: Anxious (less so today) Thought Process & Associations: Intact, Goal directed, Linear Thought Content: Appropriate Hallucination Type: None Delusion Type: None Suicidal Ideation: Yes (denies at this time) Suicidal Plan: No Suicidal Intention: No Homicidal Ideation: No Homicidal Plan: No Homicidal Intention: No Insight: Fair Judgment: Impulsive Results Vitals/IOs Vital Signs Date Time Temp Pulse Resp B/P (MAP) Pulse Ox O2 Delivery O2 Flow Rate FiO2 08/14/17 05:57 98.0 56 18 107/74 (85) 95 Intake and Output 08/14/17 08/14/17 08/14/17 07:59 15:59 23:59 Intake Total 240 ml Balance 240 ml Assessment & Plan Problem List: (1) Severe major depression, single episode, without psychotic features ICD Codes: F32.2 - Major depressive disorder, single episode, severe without psychotic features Assessment & Plan Patient responding well to current treatment, noted to have less tremors on long -acting benzodiazepine which patient will need to taper post discharge. Continue current treatment for now. Continue recommendations as per primary medical team. Discharge planning in progress Justification for Cont. Inpt. At risk for further decompensation if at lower level of care Discharge Planning Patient to be referred to inpatient rehabilitation program as well as outpatient follow-up for continuity of care Vicente Cartwright MD Aug 14, 2017 11:25
[2017-08-14] MEDS: ACETAMINOPHEN 325 MG TAB PO PRN ×2 (11:27→21:46)
[2017-08-14 17:59] VITALS: BP 117/61; PULSE 67; RESP 17; TEMP 98.1; O2SAT 95
[2017-08-14 18:14] VITALS: BP 117/61; PULSE 67; RESP 17; TEMP 98.1; O2SAT 95
[2017-08-14] MEDS: traZODone HCL 50 MG TAB PO SCH (21:46)
[2017-08-14] MEDS: MIRTAZAPINE 15 MG TAB PO SCH (21:46)
[2017-08-15] MEDS: hydrOXYzine HCL 50 MG TAB PO PRN ×2 (01:53→13:51)
[2017-08-15 05:58] VITALS: BP 115/62; PULSE 61; RESP 17; TEMP 98; O2SAT 95
[2017-08-15] MEDS: BACITRACIN TOP OINT 15 GM TUBE TOPICAL SCH ×2 (06:00→14:00)
[2017-08-15] MEDS: PANTOPRAZOLE SOD 20 MG DELAYED RELEASE TAB PO SCH (08:49)
[2017-08-15] MEDS: SERTRALINE HCL 50 MG TAB PO SCH (08:49)
[2017-08-15] MEDS: FOLIC ACID 1 MG TAB PO SCH (08:49)
[2017-08-15] MEDS: MULTIVITAMIN TAB PO SCH (08:49)
[2017-08-15] MEDS: clonazePAM 1 MG TAB PO SCH (08:49)
[2017-08-15] MEDS: valACYclovir HCL 500 MG TAB PO SCH (08:50)
[2017-08-15] MEDS: LOSARTAN 50 MG TAB PO SCH (08:50)
[2017-08-15] MEDS: THIAMINE HCL 100 MG TAB PO SCH (08:50)
[2017-08-15] MEDS: BETAMETHASONE DIPROPIONATE 0.05% CREAM 15 GM TOPICAL SCH (09:00)
--- NOTE | 2017-08-15 10:03 | HHI.PR ---
Subjective Remarks At the margin of the bed. No tremors no seizures, feels much better. No cp, sob , n/v/d/c. VSS. Plan to go home today. Objective Vitals Vital Signs Date Time Temp Pulse Resp B/P (MAP) Pulse Ox O2 Delivery O2 Flow Rate FiO2 08/15/17 05:58 98.0 61 17 115/62 (79) 95 08/14/17 22:46 18 08/14/17 18:14 98.1 67 17 117/61 (79) 95 08/14/17 17:59 98.1 67 17 117/61 (79) 95 I/O 08/14/17 08/14/17 08/14/17 08/15/17 08/15/17 08/15/17 07:00 15:00 23:00 07:00 15:00 23:00 Intake Total 480 ml 1440 ml 540 ml 360 ml Balance 480 ml 1440 ml 540 ml 360 ml Intake Oral 480 ml 1440 ml 540 ml 360 ml # Voids 4 3 Objective Remarks GENERAL: in NAD but agitated SKIN: + flacky pinkish rask btwn fingers . open blister on left toe measure about 1 cm. CARDIOVASCULAR: Regular rate and rhythm without murmurs, gallops, or rubs. RESPIRATORY: Breath sounds equal bilaterally. No accessory muscle use. GASTROINTESTINAL: Abdomen soft, non-tender, nondistended. MUSCULOSKELETAL: No cyanosis, or edema. BACK: Nontender without obvious deformity. No CVA tenderness. NEURO: mild to moderate tremors of hands at rest. A/P Assessment and Plan 66-year-old male who was العراقي act secondary to suicide attempt from overdose Overdose with Xanax/suicide attempt/major depressive disorder/العراقي act -Patient being managed by inpatient psychiatrist. -Labs reviewed. Alcohol abuse -Patient's agitation and tremors are worsening. maybe withdrawing from alcohol vs benzos -on CIKS protocol, psychiatrist ff. Started scheduled clonazepam -Continue with CIWA protocol. on thiamine, multivitamin, folic acid. Thrombocytopenia -Most likely secondary to bone suppression from alcoholism. -Patient does not have any active bleeding. -Continue to monitor platelet to assure stabilization. Hypertension -Home medication resumed. monitor BP GERD/gout -continue with home medication Rash -Improving. Continue betamethasone. Blister -Continue with bacitracin. Discussed with the patient, nurse Klaudia medically can be DC home to follow up as OP with PCP and consultants. Geno Roman MD Aug 15, 2017 10:03
[2017-08-15] MEDS: ALLOPURINOL 100 MG TAB PO SCH (10:54)
[2017-08-15] MEDS ORDERED: TRAZ50TA12 PO (12:55)
[2017-08-15] MEDS ORDERED: BETAMETHASONE DIP 0.05% TOPICAL (12:55)
[2017-08-15] MEDS ORDERED: VALA1TAB PO (12:55)
[2017-08-15] MEDS ORDERED: PANT20 PO (12:55)
[2017-08-15] MEDS ORDERED: MIRTA15 PO (12:55)
[2017-08-15] MEDS ORDERED: QC B500O TOPICAL (12:55)
[2017-08-15] MEDS ORDERED: THIA100 PO (12:55)
[2017-08-15] MEDS ORDERED: THERTAB15 PO (12:55)
[2017-08-15] MEDS ORDERED: FOLI1TAB6 PO (12:55)
[2017-08-15] MEDS ORDERED: LOSA100T PO (12:55)
[2017-08-15] MEDS ORDERED: CLON0.5T PO (12:55)
[2017-08-15] MEDS ORDERED: ZOLO50TA PO (12:55)
--- NOTE | 2017-08-15 14:24 | HHI.DS ---
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 Patient reportedly overdosed on approximately 20 Xanax and approximately 20 Ambien in a self-admitted suicide attempt. 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 He is also a recovering alcoholic and this physician is uncertain as to whether the patient has been drinking alcohol. Nurse Quin reports the patient has consumed approximately 1 pint of tequila every 2-3 days. Patient is and having marital issues as well. This physician spoke with Dr. Jessica Nelson , local OB/ [employer]CHTHYOLOG[employer] TEACH[employer] doctor, who knows of the physician and is concerned the patient may be dealing with the negative criticism from others who are pro life. The patient describes multiple symptoms of major depression, including depressed mood, anhedonia, feelings of hopelessness and helplessness, suicidal ideation, anxiety, sleep and appetite disturbance, decreased energy, etc. The patient is unable to contract for safety at this time. 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 Patient was consulted to me for second opinion. Patient says that he regrets his mistake of overdosing. 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 Patient reports that group home for him has been like "a train hitting a wall". At this moment the patient denies suicidal ideation, he says that he will do everything is needed in order to do things right and be discharged, including taking medications and going to rehabilitation. Tobacco Use In Past 30 Days: No Tobacco Past 30 Days Alcohol Use: 4 or More Times Per Week Hospital Course Patient is a 66-year-old man, , retired recently working part- time, domiciled with , with a past psychiatric history of depression, 1 previous hospitalization years ago, 1 previous interrupted suicide attempt (30 years ago), history of alcohol use disorder and benzodiazepine use, who was brought in under العراقي act due to recent overdose on Xanax and Ambien which he took 20 tablets of each with intent and plan for suicide and was subsequently brought to the inpatient psychiatry unit after medical stabilization related evaluation and management. Patient was started on escitalopram 10mg PO daily which he did not tolerate due to adverse drug reactions and was subsequently switched to sertraline 50mg PO daily which he tolerated well with good effect and mirtazapine 15mg PO at bedtime. Patient was noted to have difficulty with sleep initially with multiple nighttime awakenings despite PRN medications. He was noted to start to have clinical signs of withdrawal as patient later reported having been taking up to 4mg of Lorazepam daily prior to his admission. Patient was started on clonazepam 1mg PO BID which addressed the withdrawal symptoms and was noted to also have improved sleep. He was noted to have improvement of mood, was noted to be more optimistic, calm and cooperative with staff. Patient was noted to have had resolution of low mood and suicidal ideation and reported wanting to do all that is needed to retain his license and career. Initially patient was resistant with wanting to engage in inpatient rehabilitation and only considering outpatient rehabilitation but with reviewing the importance of rehabilitation and increasing success rate he agreed to inpatient rehabilitation program for substance use. Patient has been in contact with [facility] and will continue in communications with them in regards to his ability to return to practice. Patient was adherent to medication regimen and recommendations as per primary medical team and did not endorse suicidal ideations after admission as he had felt remorse, embarrassment and guilt for his recent attempt. Upon discharge patient stated feeling good, stated feeling great with plans on continuing treatment, outpatient follow up and engaging in inpatient rehabilitation program for substance use. Patient was offered transfer directly to the rehabilitation center but opted to return home first as he states wanted to attend to his financial and work affairs at home prior to going to the rehabilitation program. Although he was encouraged to engage directly after discharge patient states that he would like a couple of days to sort through is affairs prior to going to rehabilitation. He agreed to continuing medical recommendations, treatment and attend outpatient follow up appointments for continuity of care. Patient will be discharged back to her residence with his . Patient; denies SI, HI, AVH or delusions. Supportive psychotherapy provided. Patient advised to call 911 or return back to the ED in case of any emergency. Patient agrees with plan. Discharge medications: Sertraline 50mg PO daily Mirtazapine 15mg PO HS Clonazepam 1mg PO BID (with plan to taper) Trazodone 50mg PO HS Valacyclovir 1000mg PO daily Thiamine 100mg PO daily Folic acid 1mg PO daily Pantoprazole 20mg PO BID Allopurinol 150mg PO daily Multivitamins 1 tablet daily Losaratan 100mg PO daily Bacitracin Oint. 1 application q8hrs topical Betamethasone Dipropionate 1 application BID topical Results Blood Pressure 115 / 62 Vital Signs Date Time Temp Pulse Resp B/P (MAP) Pulse Ox O2 Delivery O2 Flow Rate FiO2 08/15/17 05:58 98.0 61 17 115/62 (79) 95 Laboratory Results Test 08/07/17 11:16 Cholesterol Level 190 MG/DL (120-200) HDL Cholesterol 58.5 MG/DL (40.0-60.0) Hemoglobin A1c 5.0 % (4.3-6.0) LDL Cholesterol 80 MG/DL (0-99) Triglycerides Level 257 MG/DL (42-150) Summary of Procedures None Pending results at discharge: No Medications # of Antipsychotic meds at D/C: 0 Approp Antipsych med options 1 - Minimum of three failed multiple trials of monotherapy. 2 - Documented plan to taper to monotherapy due to previous use of multiple meds OR cross-taper in progress at D/C. 3 - Documentation of augmentation of Clozapine. 4 - Justification other than those listed in allowable values 1-3, document here : Discharge Discharge Date: Aug 15, 2017 Discharge Diagnosis: (1) Severe major depression, single episode, without psychotic features ICD Code: F32.2 - Major depressive disorder, single episode, severe without psychotic features Pt Condition on Discharge: Stable Discharge Disposition: Discharge Home (Patient advised to engage in [facility] rehabiliation program.) Discharge Instructions Diet Instructions: Heart Healthy Diet Scheduled Appointment: Reinier Araujo Act Appointment Date: Aug 19, 2017 Appointment Time: 07:30am Discharge Time > 30 minutes Mental Status Examination Appearance: Appropriate Consciousness: Alert Orientation: x4 Motor Activity: Normal gait Speech: Unremarkable Language: Adequate Fund of Knowledge: Adequate Attention and Concentration: Adequate Memory: Unremarkable Mood: Appropriate Affect: Appropriate Thought Process & Associations: Intact, Goal directed, Linear Thought Content: Appropriate Hallucination Type: None Delusion Type: None Suicidal Ideation: No Suicidal Plan: No Suicidal Intention: No Homicidal Ideation: No Homicidal Plan: No Homicidal Intention: No Insight: Adequate Judgment: Adequate Discharge/Advance Care Plan Health Problems: (1) Severe major depression, single episode, without psychotic features Goals to promote your health * To prevent worsening of your condition and complications * To maintain your health at the optimal level Directions to meet your goals Take your medications as prescribed Follow your dietary instruction Follow activity as directed Keep your appointments as scheduled Take your immunizations and boosters as scheduled If your symptoms worsen call your PCP, if no PCP go to Urgent Care Center or Emergency Room For 28/03 questions related to your inpatient stay or results of tests pending at discharge, please contact Dr. Vicente Cartwright at Smoking is Dangerous to Your Health. Avoid second hand smoking Vicente Cartwright MD Aug 15, 2017 14:24
== END 2017-08-15 17:52 | disposition home or self-care (01) | DRG 885 ==
LOC: NEPC 02:18 → NEDA 13:17 → H4EA 15:25
PROVIDERS: ADMIT Student in an Organized Health Care Education/Training Program; ATTEND Student in an Organized Health Care Education/Training Program
DX: F32.2 Major depressive disorder, single episode, severe without psychotic features (principal); D69.6 Thrombocytopenia, unspecified; F10.239 Alcohol dependence with withdrawal, unspecified; F19.939 Other psychoactive substance use, unspecified with withdrawal, unspecified; I10 Essential (primary) hypertension; F10.21 Alcohol dependence, in remission; T42.6X2A Poisoning by other antiepileptic and sedative-hypnotic drugs, intentional self-harm, initial encounter; T42.4X2A Poisoning by benzodiazepines, intentional self-harm, initial encounter; Y92.9 Unspecified place or not applicable; M10.9 Gout, unspecified; Z87.891 Personal history of nicotine dependence; Y90.4 Blood alcohol level of 80-99 mg/100 ml; K21.9 Gastro-esophageal reflux disease without esophagitis; R21 Rash and other nonspecific skin eruption; S90.425A Blister (nonthermal), left lesser toe(s), initial encounter; X58.XXXA Exposure to other specified factors, initial encounter; Y93.01 Activity, walking, marching and hiking; F41.0 Panic disorder [episodic paroxysmal anxiety]
CPT/HCPCS: 80053; 80061; 80307; 82306; 82607; 83036; 84443; 85025; 85027; 85610; 85730; 93005; 96360; J7030